=== PATIENT | female | born 1985 | race Caucasian/White ===

== ENCOUNTER 2019-05-20 00:18 | Emergency (ER) | payer SELFPAY ==
[2019-05-20] MEDS ORDERED: Sodium Chloride 0.9% 10 ML Syringe FLUSH PRN (00:56)
[2019-05-20] MEDS ORDERED: Aspirin 81 MG Tab.Chew PO ONE (00:56)
[2019-05-20] MEDS ORDERED: Sodium Chloride 0.9% 2.5 ML Syringe FLUSH PRN (00:56)
--- NOTE | 2019-05-20 01:13 | EDM.PDOC ---
ED HPI GENERAL MEDICAL PROBLEM - General Chief Complaint: Chest Pain Stated Complaint: CHEST PAIN Time Seen by Provider: 05/20/19 00:48 - History of Present Illness INITIAL COMMENTS - FREE TEXT/NARRATIVE: HISTORY AND PHYSICAL: History of present illness: The patient is a healthy 33-year-old female with a history of a bilateral tubal ligation but no cardiac or pulmonary disease who presents with onset of midsternal chest pain pressure that radiates to her back at 10 PM, approximately 3 hours ago. Earlier today she had a normal day without any upper respiratory symptoms such as cough runny nose congestion fevers or chills and she has no abdominal pain vomiting or diarrhea. She has no GI history of reflux or GERD and she took some Tylenol earlier for headache but nothing specifically for this chest discomfort. She describes it as a pressure and she feels it more in her back than in her chest. She has no significant social history she is not on any oral hormonal medication and she has no significant family history of cardiac problems. She says it is worse with certain positions and movements but is not is certainly worse with deep breaths. She does not feel short of breath and she has no leg pain or swelling. It as a 6 or 7/10. Aside from the radiation to the back and does not radiate right or left Review of systems: As per history of present illness and below otherwise all systems reviewed and negative. Past medical history: As per history of present illness and as reviewed below otherwise noncontributory. Surgical history: As per history of present illness and as reviewed below otherwise noncontributory. Social history: No reported history of drug or alcohol abuse. Family history: As per history of present illness and as reviewed below otherwise noncontributory. Physical exam: General: Well-developed well-nourished female who is nontoxic and vital signs are noted by me. She is not breathless on my evaluation HEENT: Atraumatic, normocephalic, pupils reactive, negative for conjunctival pallor or scleral icterus, mucous membranes moist, throat clear, neck supple, nontender, trachea midline. Lungs: Clear to auscultation, breath sounds equal bilaterally, chest nontender And with very deep palpation I can trigger some of the discomfort but is not completely reproducible and there is no defects deformities or crepitus of the chest wallHeart: S1S2, regular, negative for clicks, rubs, or JVD. Abdomen: Soft, nondistended, nontender. Negative for masses or hepatosplenomegaly. Negative for costovertebral tenderness. Pelvis: Stable nontender. Genitourinary: Deferred. Rectal: Deferred. Extremities: Atraumatic, negative for cords or calf pain. Neurovascular unremarkable. no pedal edema or leg asymmetry Neuro: Awake, alert, oriented. Cranial nerves II through XII unremarkable. Cerebellum unremarkable. Motor and sensory unremarkable throughout. Exam nonfocal. Diagnostics: EKG CBC CMP INR amylase lipase d-dimer troponin chest x-ray Due to elevated d-dimer CTA chest was ordered Therapeutics: IV O2 monitor aspirin sublingual nitroglycerin After 2 sublingual nitroglycerin the patient's chest pain is 1/10. We will continue to monitor this and disposition pending those results Patient is currently pain-free .Patient is aware of all testing results including the CT scan which does not reveal any pulmonary embolus but there is a nodule in the lingula that she is aware she needs follow-up as an outpatient in 3-6 months and she is also aware that she has distention of a gallbladder with stones. The patient tells me she did eat pizza tonight for dinner and her pain started several hours after that. I've advised her to eat a low-fat diet and to follow-up in neurosurgery clinic as this is the most likely cause of her chest pain/I will give her some tramadol for home Impression: Atypical chest/back pain, biliary colic and cholelithiasis Definitive disposition and diagnosis as appropriate pending reevaluation and review of above. chest Pain Score (Numeric/FACES): 8 - Related Data Allergies Allergy/AdvReac Type Severity Reaction Status Date / Time diphenhydramine Allergy Hives Verified 05/20/19 00:43 [From Benadryl] Home Meds: Home Meds Carbidopa/Levodopa [Carbidopa-Levo 25-100 MG ODT] 1 tab PO DAILY 05/20/19 [ History] ED ROS GENERAL - Review of Systems Review Of Systems: Comprehensive ROS is negative, except as noted in HPI. ED EXAM, GENERAL - Physical Exam Exam: See Below (see Dictation) Course - Vital Signs Last Recorded V/S: Last Vital Signs Temp 36.9 C 05/20/19 01:31 Pulse 76 05/20/19 01:35 Resp 18 05/20/19 01:35 BP 99/63 05/20/19 01:35 Pulse Ox 96 05/20/19 01:31 - Orders/Labs/Meds Orders: Active Orders 24 hr Category Date Time Status Cardiac Monitoring [RC] . DIRECTED Care 05/20/19 00:55 Active EKG Documentation Completion [RC] STAT Care 05/20/19 00:55 Active Oxygen Therapy, ED [RC] ASDIRECTED Care 05/20/19 00:55 Active Pulse Oximetry [RC] ASDIRECTED Care 05/20/19 00:55 Active Nitroglycerin [Nitrostat] Med 05/20/19 00:56 Active 0.4 mg SL Q5M PRN Sodium Chloride 0.9% [Saline Flush] Med 05/20/19 00:56 Active 10 ml FLUSH ASDIRECTED PRN Sodium Chloride 0.9% [Saline Flush] Med 05/20/19 00:56 Active 2.5 ml FLUSH ASDIRECTED PRN Saline Lock Insert [OM.PC] Stat Oth 05/20/19 00:55 Ordered Medication Orders Nitroglycerin (Nitrostat) 0.4 mg SL Q5M PRN PRN Reason: Chest Pain Last Admin: 05/20/19 01:23 Dose: 0.4 mg Admin: 05/20/19 01:18 Dose: 0.4 mg Sodium Chloride (Saline Flush) 10 ml FLUSH ASDIRECTED PRN PRN Reason: Keep Vein Open Sodium Chloride (Saline Flush) 2.5 ml FLUSH ASDIRECTED PRN PRN Reason: Keep Vein Open Labs: Laboratory Tests 05/20/19 05/20/19 05/20/19 Range/Units 01:15 01:15 01:15 WBC 9.63 (4.0-11.0) K/uL RBC 4.35 (4.30-5.90) M/uL Hgb 13.2 (12.0-16.0) g/dL Hct 39.3 (36.0-46.0) % MCV 90.3 (80.0-98.0) fL MCH 30.3 (27.0-32.0) pg MCHC 33.6 (31.0-37.0) g/dL RDW Std Deviation 43.0 (28.0-62.0) fl RDW Coeff of Yael 13 (11.0-15.0) % Plt Count 335 (150-400) K/uL MPV 9.40 (7.40-12.00) fL Neut % (Auto) 53.2 (48.0-80.0) % Lymph % (Auto) 27.8 (16.0-40.0) % Jessamine % (Auto) 13.9 (0.0-15.0) % Eos % (Auto) 4.5 (0.0-7.0) % Baso % (Auto) 0.6 (0.0-1.5) % Neut # (Auto) 5.1 (1.4-5.7) K/uL Lymph # (Auto) 2.7 H (0.6-2.4) K/uL Jessamine # (Auto) 1.3 H (0.0-0.8) K/uL Eos # (Auto) 0.4 (0.0-0.7) K/uL Baso # (Auto) 0.1 (0.0-0.1) K/uL Nucleated RBC % 0.0 /100WBC Nucleated RBCs # 0 K/uL INR D-Dimer, Quantitative 1.04 H (0.0-0.50) mg/L FEU Sodium 139 (136-145) mmol/L Potassium 4.0 (3.5-5.1) mmol/L Chloride 105 (98-107) mmol/L Carbon Dioxide 25.4 (21.0-32.0) mmol/L BUN 14 (7.0-18.0) mg/dL Creatinine 1.0 (0.6-1.0) mg/dL Est Cr Clr Drug Dosing 66.19 mL/min Estimated GFR (MDRD) > 60.0 ml/min Glucose 98 (74-106) mg/dL Calcium 8.7 (8.5-10.1) mg/dL Total Bilirubin 0.2 (0.2-1.0) mg/dL AST 18 (15-37) IU/L ALT 57 (14-63) IU/L Alkaline Phosphatase 102 (46-116) U/L Troponin I < 0.050 (0.000-0.056) ng/mL Total Protein 7.6 (6.4-8.2) g/dL Albumin 3.6 (3.4-5.0) g/dL Globulin 4.0 (2.6-4.0) g/dL Albumin/Globulin Ratio 0.9 (0.9-1.6) Amylase 55 (25-115) U/L Lipase 148 (73-393) U/L 05/20/19 Range/Units 01:15 WBC (4.0-11.0) K/uL RBC (4.30-5.90) M/uL Hgb (12.0-16.0) g/dL Hct (36.0-46.0) % MCV (80.0-98.0) fL MCH (27.0-32.0) pg MCHC (31.0-37.0) g/dL RDW Std Deviation (28.0-62.0) fl RDW Coeff of Yael (11.0-15.0) % Plt Count (150-400) K/uL MPV (7.40-12.00) fL Neut % (Auto) (48.0-80.0) % Lymph % (Auto) (16.0-40.0) % Jessamine % (Auto) (0.0-15.0) % Eos % (Auto) (0.0-7.0) % Baso % (Auto) (0.0-1.5) % Neut # (Auto) (1.4-5.7) K/uL Lymph # (Auto) (0.6-2.4) K/uL Jessamine # (Auto) (0.0-0.8) K/uL Eos # (Auto) (0.0-0.7) K/uL Baso # (Auto) (0.0-0.1) K/uL Nucleated RBC % /100WBC Nucleated RBCs # K/uL INR 0.96 D-Dimer, Quantitative (0.0-0.50) mg/L FEU Sodium (136-145) mmol/L Potassium (3.5-5.1) mmol/L Chloride (98-107) mmol/L Carbon Dioxide (21.0-32.0) mmol/L BUN (7.0-18.0) mg/dL Creatinine (0.6-1.0) mg/dL Est Cr Clr Drug Dosing mL/min Estimated GFR (MDRD) ml/min Glucose (74-106) mg/dL Calcium (8.5-10.1) mg/dL Total Bilirubin (0.2-1.0) mg/dL AST (15-37) IU/L ALT (14-63) IU/L Alkaline Phosphatase (46-116) U/L Troponin I (0.000-0.056) ng/mL Total Protein (6.4-8.2) g/dL Albumin (3.4-5.0) g/dL Globulin (2.6-4.0) g/dL Albumin/Globulin Ratio (0.9-1.6) Amylase (25-115) U/L Lipase (73-393) U/L Meds: Medications Generic Name Dose Route Start Last Admin Trade Name Freq PRN Reason Stop Dose Admin Nitroglycerin 0.4 mg 05/20/19 00:56 05/20/19 01:23 Nitrostat SL 0.4 mg Q5M PRN Administration Chest Pain Sodium Chloride 10 ml 05/20/19 00:56 Saline Flush FLUSH ASDIRECTED PRN Keep Vein Open Sodium Chloride 2.5 ml 05/20/19 00:56 Saline Flush FLUSH ASDIRECTED PRN Keep Vein Open Discontinued Medications Generic Name Dose Route Start Last Admin Trade Name Freq PRN Reason Stop Dose Admin Aspirin 324 mg 05/20/19 00:56 05/20/19 01:10 Aspirin PO 05/20/19 00:57 324 mg ONETIME ONE Administration Iopamidol 100 ml 05/20/19 02:14 05/20/19 02:26 Isovue-370 (76%) IVPUSH 05/20/19 02:15 100 ml ONETIME ONE Administration Departure - Departure Time of Disposition: 03:13 Disposition: Home, Self-Care 01 Condition: Good Clinical Impression: Atypical chest pain, Biliary colic Cholelithiasis Qualifiers: Cholelithiasis location: gallbladder Cholecystitis presence: without cholecystitis Biliary obstruction: without biliary obstruction Qualified Code(s) : K80.20 - Calculus of gallbladder without cholecystitis without obstruction - Discharge Information Referrals: PCP,None [Primary Care Provider] - Forms: ED Department Discharge Additional Instructions: The following information is given to patients seen in the emergency department who are being discharged to home. This information is to outline your options for follow-up care. We provide all patients seen in our emergency department with a follow-up referral. The need for follow-up, as well as the timing and circumstances, are variable depending upon the specifics of your emergency department visit. If you don't have a primary care physician on staff, we will provide you with a referral. We always advise you to contact your personal physician following an emergency department visit to inform them of the circumstance of the visit and for follow-up with them and/or the need for any referrals to a consulting specialist. The emergency department will also refer you to a specialist when appropriate. This referral assures that you have the opportunity for followup care with a specialist. All of these measure are taken in an effort to provide you with optimal care, which includes your followup. Under all circumstances we always encourage you to contact your private physician who remains a resource for coordinating your care. When calling for followup care, please make the office aware that this follow-up is from your recent emergency room visit. If for any reason you are refused follow-up, please contact the [facility] emergency department at and ask to speak to the emergency department charge nurse. [facility] [address] [place] [address] Please eat a low-fat diet and push hydration. Use [id number] medications for discomfort and pain and at the tramadol as you need but only take 1 at home. Please connect with our surgery clinic as he will need further care and evaluation of the gallbladder and the gallstones. Return to ER as needed and as discussed - My Orders Last 24 Hours: My Active Orders 05/20/19 00:55 Cardiac Monitoring [RC] . DIRECTED EKG Documentation Completion [RC] STAT Oxygen Therapy, ED [RC] ASDIRECTED Pulse Oximetry [RC] ASDIRECTED Saline Lock Insert [OM.PC] Stat 05/20/19 00:56 Nitroglycerin [Nitrostat] 0.4 mg SL Q5M PRN Sodium Chloride 0.9% [Saline Flush] 10 ml FLUSH ASDIRECTED PRN Sodium Chloride 0.9% [Saline Flush] 2.5 ml FLUSH ASDIRECTED PRN - Assessment/Plan Last 24 Hours: My Active Orders 05/20/19 00:55 Cardiac Monitoring [RC] . DIRECTED EKG Documentation Completion [RC] STAT Oxygen Therapy, ED [RC] ASDIRECTED Pulse Oximetry [RC] ASDIRECTED Saline Lock Insert [OM.PC] Stat 05/20/19 00:56 Nitroglycerin [Nitrostat] 0.4 mg SL Q5M PRN Sodium Chloride 0.9% [Saline Flush] 10 ml FLUSH ASDIRECTED PRN Sodium Chloride 0.9% [Saline Flush] 2.5 ml FLUSH ASDIRECTED PRN
[2019-05-20] MEDS: Nitroglycerin 0.4 MG Tab.SL SL PRN ×2 (01:18→01:23)
[2019-05-20 01:49] LABS: BLOOD UREA NITROGEN,BUN 14 mg/dL (7.0-18.0); CARBON DIOXIDE,CO2 25.4 mmol/L (21.0-32.0); CHLORIDE,CL 105 mmol/L (98-107); GLUCOSE RANDOM 98 mg/dL (74-106); LIPASE 148 U/L (73-393); SODIUM,NA 139 mmol/L (136-145)
--- NOTE | 2019-05-20 01:55 | CR ---
INDICATION: Chest pain TECHNIQUE: Chest radiograph 1 view COMPARISON: None FINDINGS: Moderate degradation of image quality noted due to body habitus. Mediastinum: The mediastinum is normal in appearance. The heart silhouette is normal in size and morphology. Lung: Both lungs are unremarkable in appearance with small lung volumes. No sign of pleural effusion seen. No pneumothorax is identified. Bone and Soft tissue: Unremarkable for age. IMPRESSION: 1. No acute cardiopulmonary disease is seen. Dictated by: Skyler Syed MD @ 05/20/2019 01:54:57 (Electronically Signed)
[2019-05-20] MEDS ORDERED: Iopamidol 755 Mg/ML 100 ML Bottle IVPUSH ONE (02:14)
--- NOTE | 2019-05-20 02:43 | CT ---
INDICATION: Chest pain with elevated d-dimer TECHNIQUE: CT chest with i.v. contrast using pulmonary angiographic technique. Coronal and sagittal reformats were obtained. CONTRAST: 100 mL Isovue 370 COMPARISON: None FINDINGS: Cardiovascular: The pulmonary arteries are unremarkable in enhancement with no evidence of acute pulmonary embolism. The heart has an unremarkable appearance and size. No sign of aneurysm in the thoracic aorta. Mediastinum: No mass or adenopathy seen. Lung: Eeky-vy-psxiurxg ground-glass opacities present in both lung bases with mosaic attenuation. There is a 6 mm nodular density in the lateral base of the lingula. Pleura and pericardium: No sign of pleural effusion seen. No significant pericardial effusion is present. Chest wall and axilla: No mass or adenopathy seen. Bone: Unremarkable for age. Upper abdomen: The gallbladder is distended measuring 5 cm with multiple faceted gallstones seen. IMPRESSIONS: 1. No CT evidence of acute pulmonary emboli seen. 2. The gallbladder is distended measuring 5 cm with multiple faceted gallstones seen. 3. Kucf-su-fxacttyc ground-glass opacities present in both lung bases with mosaic attenuation. Clinical correlation is recommended to exclude pneumonitis or viral pneumonia. 4. There is a 6 mm nodular density in the lateral base of the lingula. This may represent a focus of atelectasis. Follow-up chest CT in 3-6 months is recommended to document resolution. Dictated by Skyler Syed MD @ 05/20/2019 2:40:54 AM Please note that all CT scans at this facility use dose modulation, iterative reconstruction, and/or weight-based dosing when appropriate to reduce radiation dose to as low as reasonably achievable. Dictated by: Skyler Syed MD @ 05/20/2019 02:40:57 (Electronically Signed)
== END 2019-05-20 03:30 | disposition home or self-care (01) ==
LOC: MW.ED 00:18
DX: R07.89 Other chest pain (principal); K80.70 Calculus of gallbladder and bile duct without cholecystitis without obstruction; Z88.8 Allergy status to other drugs, medicaments and biological substances; Z79.899 Other long term (current) drug therapy
CPT/HCPCS: 36415; 71045; 71275; 80053; 82150; 83690; 84484; 85025; 85379; 85610; 93005; 99285; A9270; Q9967; 99284

== ENCOUNTER 2019-05-30 10:07 | Emergency (ER) | payer SELFPAY ==
--- NOTE | 2019-05-30 10:30 | EDM.PDOC ---
ED HPI GENERAL MEDICAL PROBLEM - General Chief Complaint: ENT Problem Stated Complaint: COUGH Time Seen by Provider: 05/30/19 10:13 Source of Information: Reports: Patient History Limitations: Reports: No Limitations - History of Present Illness INITIAL COMMENTS - FREE TEXT/NARRATIVE: HISTORY AND PHYSICAL: History of present illness: Patient is a 33-year-old female who presents to the ED today with concern of cough and sore throat 4 days. Patient states she has taken [id number] Mucinex and use cough drops and does have relief of symptoms with this. Patient denies any health history or any other symptoms or concerns. Patient denies fever, chills, chest pain, shortness of breath. Denies headache, neck stiff ness, change in vision, syncope, or near syncope. Denies nausea, vomiting, abdominal pain, diarrhea, constipation, or dysuria. Has not noted any blood in urine or stool. Patient has been eating and drinking appropriately. Review of systems: As per history of present illness and below otherwise all systems reviewed and negative. Past medical history: As per history of present illness and as reviewed below otherwise noncontributory. Surgical history: As per history of present illness and as reviewed below otherwise noncontributory. Social history: See social history for further information Family history: As per history of present illness and as reviewed below otherwise noncontributory. Physical exam: General: Patient is alert, oriented, and in no acute distress. Patient sitting comfortably on exam table. HEENT: Atraumatic, normocephalic, pupils equal and reactive bilaterally, negative for conjunctival pallor or scleral icterus, mucous membranes moist, TMs normal bilaterally, throat clear, neck supple, nontender, trachea midline. No drooling or trismus noted. No meningeal signs. No hot potato voice noted. Lungs: Clear to auscultation, breath sounds equal bilaterally, chest nontender. Dry cough on exam. Heart: S1S2, regular rate and rhythm without overt murmur Abdomen: Soft, nondistended, nontender. Negative for masses or hepatosplenomegaly. Negative for costovertebral tenderness. Pelvis: Stable nontender. Genitourinary: Deferred. Rectal: Deferred. Skin: Intact, warm, dry. No lesions or rashes noted. Extremities: Atraumatic, negative for cords or calf pain. Neurovascular unremarkable. Neuro: Awake, alert, oriented. Cranial nerves II through XII unremarkable. Cerebellum unremarkable. Motor and sensory unremarkable throughout. Exam nonfocal. Notes: Discussed the importance for follow-up with the primary care provider. Voices understanding and is agreeable to plan of care. Denies any further questions or concerns at this time. Diagnostics: Strep, Influenza, CBC, CMP, CXR Therapeutics: None Prescription: Proair, Augmentin Impression: Community Acquired Pneumonia Plan: 1. Take medication as prescribed. You can alternate ibuprofen and Tylenol as checked for pain and discomfort. 2. Follow-up with her primary care provider as discussed. Return to the ED as needed and as discussed. Definitive disposition and diagnosis as appropriate pending reevaluation and review of above. throat Pain Score (Numeric/FACES): 6 - Related Data Allergies Allergy/AdvReac Type Severity Reaction Status Date / Time diphenhydramine Allergy Hives Verified 05/30/19 10:14 [From Benadryl] Home Meds: Home Meds Carbidopa/Levodopa [Carbidopa-Levo 25-100 MG ODT] 1 tab PO DAILY 05/20/19 [ History] Albuterol Sulfate [Proair Hfa] 8.5 gm IH Q8HR PRN #1 hfa.aer.ad 05/30/19 [Rx] methylPREDNISolone [Medrol] 4 mg PO ASDIRECTED #1 dosepk 05/30/19 [Rx] Past Medical History - Past Health History Medical/Surgical History: Denies Medical/Surgical History Neurological History: Reports: Other (See Below) Other Neuro History: Dystonia - Past Surgical History Female Surgical History: Reports: Section, Tubal Ligation Social & Family History - Family History Family Medical History: Noncontributory - Tobacco Use Smoking Status *Q: Never Smoker - Recreational Drug Use Recreational Drug Use: No ED ROS GENERAL - Review of Systems Review Of Systems: Comprehensive ROS is negative, except as noted in HPI. ED EXAM, GENERAL - Physical Exam Exam: See Below (See dictation) Course - Vital Signs Last Recorded V/S: Last Vital Signs Temp 96.8 F 05/30/19 10:14 Pulse 99 05/30/19 10:14 Resp 18 05/30/19 10:14 BP 116/68 05/30/19 10:14 Pulse Ox 96 05/30/19 10:14 - Orders/Labs/Meds Orders: Active Orders 24 hr Category Date Time Status CULTURE STREP A CONFIRMATION [RM] Stat Lab 05/30/19 10:16 Results STREP SCRN A RAPID W CULT CONF [RM] Stat Lab 05/30/19 10:16 Results Labs: Laboratory Tests 05/30/19 05/30/19 Range/Units 10:39 10:39 WBC 6.12 (4.0-11.0) K/uL RBC 4.26 L (4.30-5.90) M/uL Hgb 12.4 (12.0-16.0) g/dL Hct 38.5 (36.0-46.0) % MCV 90.4 (80.0-98.0) fL MCH 29.1 (27.0-32.0) pg MCHC 32.2 (31.0-37.0) g/dL RDW Std Deviation 44.0 (28.0-62.0) fl RDW Coeff of Yael 13 (11.0-15.0) % Plt Count 283 (150-400) K/uL MPV 9.70 (7.40-12.00) fL Neut % (Auto) 57.9 (48.0-80.0) % Lymph % (Auto) 14.9 L (16.0-40.0) % Lawrence % (Auto) 19.0 H (0.0-15.0) % Eos % (Auto) 7.7 H (0.0-7.0) % Baso % (Auto) 0.5 (0.0-1.5) % Neut # (Auto) 3.6 (1.4-5.7) K/uL Lymph # (Auto) 0.9 (0.6-2.4) K/uL Lawrence # (Auto) 1.2 H (0.0-0.8) K/uL Eos # (Auto) 0.5 (0.0-0.7) K/uL Baso # (Auto) 0.0 (0.0-0.1) K/uL Nucleated RBC % 0.0 /100WBC Nucleated RBCs # 0 K/uL Sodium 139 (136-145) mmol/L Potassium 3.5 (3.5-5.1) mmol/L Chloride 105 (98-107) mmol/L Carbon Dioxide 26.1 (21.0-32.0) mmol/L BUN 7 (7.0-18.0) mg/dL Creatinine 0.9 (0.6-1.0) mg/dL Est Cr Clr Drug Dosing 73.55 mL/min Estimated GFR (MDRD) > 60.0 ml/min Glucose 97 (74-106) mg/dL Calcium 8.5 (8.5-10.1) mg/dL Total Bilirubin 0.5 (0.2-1.0) mg/dL AST 53 H (15-37) IU/L ALT 36 (14-63) IU/L Alkaline Phosphatase 125 H (46-116) U/L Total Protein 7.9 (6.4-8.2) g/dL Albumin 3.4 (3.4-5.0) g/dL Globulin 4.5 H (2.6-4.0) g/dL Albumin/Globulin Ratio 0.8 L (0.9-1.6) Departure - Departure Time of Disposition: 12:08 Disposition: Home, Self-Care 01 Clinical Impression: Community acquired pneumonia Qualifiers: Laterality: right Lung location: middle lobe of lung Qualified Code(s): J18.9 - Pneumonia, unspecified organism - Discharge Information Prescriptions: Albuterol Sulfate [Proair Hfa] 8.5 gm IH Q8HR PRN #1 hfa.aer.ad PRN Reason: Cough methylPREDNISolone [Medrol] 4 mg PO ASDIRECTED #1 dosepk Referrals: Lindsay Diop MD [Primary Care Provider] - Forms: ED Department Discharge Additional Instructions: The following information is given to patients seen in the emergency department who are being discharged to home. This information is to outline your options for follow-up care. We provide all patients seen in our emergency department with a follow-up referral. The need for follow-up, as well as the timing and circumstances, are variable depending upon the specifics of your emergency department visit. If you don't have a primary care physician on staff, we will provide you with a referral. We always advise you to contact your personal physician following an emergency department visit to inform them of the circumstance of the visit and for follow-up with them and/or the need for any referrals to a consulting specialist. The emergency department will also refer you to a specialist when appropriate. This referral assures that you have the opportunity for follow-up care with a specialist. All of these measure are taken in an effort to provide you with optimal care, which includes your follow-up. Under all circumstances we always encourage you to contact your private physician who remains a resource for coordinating your care. When calling for follow-up care, please make the office aware that this follow-up is from your recent emergency room visit. If for any reason you are refused follow-up, please contact the [facility] Emergency Department at and asked to speak to the emergency department charge nurse. [facility] [address] [place] [address] [address] 1. Take medication as prescribed. You can alternate ibuprofen and Tylenol as checked for pain and discomfort. 2. Follow-up with her primary care provider as discussed. Return to the ED as needed and as discussed. - My Orders Last 24 Hours: My Active Orders 05/30/19 10:16 CULTURE STREP A CONFIRMATION [RM] Stat STREP SCRN A RAPID W CULT CONF [RM] Stat - Assessment/Plan Last 24 Hours: My Active Orders 05/30/19 10:16 CULTURE STREP A CONFIRMATION [RM] Stat STREP SCRN A RAPID W CULT CONF [RM] Stat
[2019-05-30 11:10] LABS: BLOOD UREA NITROGEN,BUN 7 mg/dL (7.0-18.0); CARBON DIOXIDE,CO2 26.1 mmol/L (21.0-32.0); CHLORIDE,CL 105 mmol/L (98-107); GLUCOSE RANDOM 97 mg/dL (74-106); POTASSIUM,K 3.5 mmol/L (3.5-5.1); SODIUM,NA 139 mmol/L (136-145)
--- NOTE | 2019-05-30 11:56 | CR ---
EXAM DATE: 05/30/19 PATIENT'S AGE: 33 Chest: Two views of the chest were obtained. Comparison: Prior chest x-ray of 05/20/19. Consolidating density is noted within the right middle lobe. This is an interval change from prior chest x-ray. Lungs otherwise are clear. Heart size and mediastinum are normal. Bony structures are unremarkable. Impression: 1. Consolidation within the right middle lobe most likely representing pneumonia. 2. Right middle lobe finding is an interval change from prior chest x-ray. Diagnostic code #3 This report was dictated in [place] Standard Time Report Signed by Proxy. [facility]
== END 2019-05-30 12:25 | disposition home or self-care (01) ==
LOC: MW.ED 10:07
DX: J18.9 Pneumonia, unspecified organism (principal); Z88.8 Allergy status to other drugs, medicaments and biological substances
CPT/HCPCS: 36415; 71046; 71046-26; 80053; 85025; 87081; 87804; 87880-QW; 99283-25

== ENCOUNTER 2019-08-14 02:35 | Emergency (ER) | payer SELFPAY ==
[2019-08-14] MEDS ORDERED: Dexamethasone 4 MG Tab PO ONE (02:54)
[2019-08-14] MEDS ORDERED: Ibuprofen 800 MG Tab PO ONE (02:55)
--- NOTE | 2019-08-14 03:14 | EDM.PDOC ---
ED HPI GENERAL MEDICAL PROBLEM - General Chief Complaint: ENT Problem Stated Complaint: SORE THROAT Time Seen by Provider: 08/14/19 03:14 - History of Present Illness INITIAL COMMENTS - FREE TEXT/NARRATIVE: HPI 33-year-old female presents for evaluation of ~3/4 day of sore throat for which she is taking cough drops. Patient is concerned she has strep throat. No headache, fevers, chills, neck stiffness, or further symptoms. No new sexual contacts. M/S/F/SocHx notable for: please see HPI; remainder reviewed with patient and in chart. ROS: Negative constitutional, eye, cardiovascular, pulmonary, GI, , MSK, skin , neurologic, psychiatric, endocrine unless noted in the HPI. Exam HR 90, RR 18, BP 136/77, T 35.9C, SaO2 9 & room air. Gen: Pleasant, non-toxic appearing, resting comfortably. HEENT: Normocephalic, atraumatic. * Ears - TMs clear bilaterally, bilateral external auditory canals without erythema, inflammation, or swelling, bilateral mastoids nontender without overlying erythema, swelling, or warmth. * Eyes - Bilateral eyes without injection, swelling, or discharge, no proptosis or periorbital erythema, swelling, warmth, or tenderness. * Mouth - Anterior oropharynx with MMM, no lesions appreciated, floor of the mouth is soft and without swelling. Posterior oropharynx without swelling, exudate, erythema, lesions, or post-nasal drip, uvula midline. * Nose - Nares without crusting or discharge. * Neck - Neck supple without posterior or anterior cervical chain lymphadenopathy bilaterally. Resp: Clear to auscultation bilaterally, normal work of breathing without accessory muscle usage. Card: Regular rate and rhythm with no murmurs, rubs or gallops. Extremities warm and well perfused. GI: Non-tender to palpation throughout all quadrants, no masses or organomegaly appreciated. : Deferred MSK: No visible deformities, strength and tone without visually appreciable deficit. Neuro: alert and oriented 3, no facial asymmetry, vision and hearing WNL. Heme/Lymph: Deferred Skin: Normal color with no visible lesions (other than noted above). Psych: Mood and affect appropriate. Labs / Imaging (pertinent): Group A strep negative. MDM Previous chart, nursing note, labs, imaging, and vitals reviewed. A: 33-year-old female presents for evaluation of ~3/4 day of sore throat for which she is taking cough drops. DDx: ]pharyngitis (HSV vs viral NOS vs GAS vs gonoccocal vs bacterial NOS)], EBV , HIV, candidiasis, sinusitis (bacterial, viral), peritonsillar cellulitis, STREET VENDOR , RPA, Pablo's angina, epiglottitis. Evaluation: patient well compensated appearing with clinically apparent pharyngitis, rapid strep negative, no identifiable risk features for gonococcal pharyngitis, oral mucosa without lesions consistent with HSV or candidiasis, doubt bacterial sinusitis given duration of symptoms, low suspicion for peritonsillar cellulitis or abscess given the absence of asymmetric swelling or uvular deviation, RPA is unlikely as the patient can comfortably flex and extend their neck and swallow without difficulty. As phonation is intact and breathing is unlabored doubt epiglottitis. The floor of the mouth is without evidence of Pablo's angina. Lemierre's disease was considered but as the patient does not have signs of STREET VENDOR or sepsis, further evaluation was not indicated. ED Course: No clinically significant changes. Patient given 10 mg dexamethasone PO and ibuprofen 800 mg. Disposition: Discharge with return to care as needed. Return to care indications provided. Impression: Pharyngitis throat Pain Score (Numeric/FACES): 10 - Related Data Allergies Allergy/AdvReac Type Severity Reaction Status Date / Time diphenhydramine Allergy Hives Verified 08/14/19 02:46 [From Benadryl] Home Meds: Home Meds Carbidopa/Levodopa [Carbidopa-Levo 25-100 MG ODT] 1 tab PO DAILY 05/20/19 [ History] Past Medical History - Past Health History Medical/Surgical History: Denies Medical/Surgical History HEENT History: Reports: None Cardiovascular History: Reports: None Respiratory History: Reports: None Gastrointestinal History: Reports: None Neurological History: Reports: Other (See Below) Other Neuro History: Dystonia Endocrine/Metabolic History: Reports: None Hematologic History: Reports: None Dermatologic History: Reports: None - Infectious Disease History Infectious Disease History: Reports: Chicken Pox - Past Surgical History Female Surgical History: Reports: Section, Tubal Ligation Social & Family History - Family History Family Medical History: Noncontributory - Tobacco Use Smoking Status *Q: Never Smoker - Recreational Drug Use Recreational Drug Use: No ED ROS GENERAL - Review of Systems Review Of Systems: See Below ED EXAM, GENERAL - Physical Exam Exam: See Below Course - Vital Signs Last Recorded V/S: Last Vital Signs Temp 35.9 C 08/14/19 02:47 Pulse 90 08/14/19 02:47 Resp 18 08/14/19 02:47 BP 136/77 08/14/19 02:47 Pulse Ox 99 08/14/19 02:47 - Orders/Labs/Meds Orders: Active Orders 24 hr Category Date Time Status CULTURE STREP A CONFIRMATION [] Stat Lab 08/14/19 02:43 Results STREP SCRN A RAPID W CULT CONF [] Stat Lab 08/14/19 02:43 Results Meds: Medications Discontinued Medications Generic Name Dose Route Start Last Admin Trade Name Phi PRN Reason Stop Dose Admin Dexamethasone 10 mg 08/14/19 02:54 08/14/19 03:08 Dexamethasone PO 08/14/19 02:55 10 mg ONETIME ONE Administration Ibuprofen 800 mg 08/14/19 02:55 08/14/19 03:08 Motrin PO 08/14/19 02:56 800 mg ONETIME ONE Administration Departure - Departure Time of Disposition: 03:13 Disposition: Home, Self-Care 01 Clinical Impression: Pharyngitis - Discharge Information Referrals: Lindsay Diop MD [Primary Care Provider] - Additional Instructions: You were in seen in the [facility] Emergency Department for evaluation of a sore throat, you are tentatively believed to have a viral infection causing pharyngitis. This is best treated with ibuprofen and acetaminophen as directed below. Please read and follow all of the instructions below. Please follow up with your primary care physician as needed. When calling for follow-up care, please make the office aware that this follow-up is from your recent emergency room visit. If for any reason you are refused follow-up, please contact the [facility] Emergency Department at and asked to speak to the emergency department charge nurse. Your care today was limited to identifying and treating emergent medical problems only. Many people have subtle differences in their test results that require follow up with their outpatient physician(s) to correctly determine if this represents a normal variation or concerning abnormality with respect to your specific health. The care given to you today was limited to identifying and treating emergent medical problems - you need to request a copy of all of your medical records from today's visit and follow up with your outpatient physician(s) to review both today's visit and your overall health. If you have any new symptoms or if you are at all concerned about your health please return immediately to the emergency department. Prescriptions: If you are uninsured or have financial difficulties with filling your prescription(s), you may consider using a free pharmacy discount service such as [employer] (K[employer]) or [employer] (Plasti[employer]ure). These services allow you to search for a medication on your phone (or computer) and obtain a coupon that usually has a significant discount from the list carmen at a pharmacy. Your physician as well as [facility] does not have a financial relationship with either of these services. You may also wish to speak with your physician to determine if lower cost prescriptions are possible. Obtaining primary care: 1. [facility] provides pediatrics (children), family medicine (children, adults, and some obstetrical care), and internal medicine (adults). Further specialty care is also available. Same day appointments are available. They may be contacted at [phone] and are open Tuesday through Tuesday 8 AM to 5 PM. The [facility] are located at [facility], [address] [place] [address]. 2. [facility] offers family medicine, internal medicine, [facility], and further specialty care. [facility] may be contacted at [phone]. [facility] is located at [address] [place] [address], [phone]. 3. If you have health insurance, please also contact your insurer for a list of accepting providers under your policy, you may contact these providers for further health care. Occupational health: Work related injuries may consider following up with [facility], . Occupational health services are located at [address] [place] [address] and are open Tuesday through Tuesday from 7: 30 am to 5:00 pm. Obstetrical and Gynecological Care: [facility], , Tuesday through Tuesday 8 AM to 5 PM. [address] [place] [address]. Eyecare: If you have an eye injury you should follow up with your city controller or with [facility], at [phone] or [phone] , they are located at [address] [place] [address]. Dental Care Amado Guajardo DDS. [address] [place], [place]. Ph. [phone] Chuck Guajardo DDS MS. [address] [facility] 104, [place], [place]. Ph. Charly Martínez DDS. 10 07/[address] [place] [address]. Ph. [phone] Bobby Johnston DDS. [address] [facility] 4 [place], [place]. Ph. [phone] Evangel[facility] Guerrero [facility] PC. [address] [facility] 101 [place], [place]. Ph. Yolande Esquivel DDS. [address] [facility]. Ph. [phone] [facility]. [address] [place], [place]. Ph. [phone] [facility]. [address] [place] [address], [place], [place]. Ph. [phone] [facility] [address] [place] [phone]. Ph. [facility]. [address] [place] [address] [address] [place], [place]. Ph. [facility]. [address] [place], [place]. Ph. [phone] Pharyngitis You have a severe sore throat caused by a viral or bacterial infection. These infections usually get better in 4-7 days with supportive care. You may use the following to reduce your pain: Ibuprofen 600 mg every 6-8 hours. Acetaminophen 1,000 mg every 6 hours. Over the counter throat lozenges. Warm liquids with honey may help. Please return to the emergency department if you develop any of the following: Difficulty swallowing One tonsil that is much larger than the other. Pain on flexing your neck or difficulty bending your neck Swelling below your tongue Rash Red or brown urine High fevers or chills If you are otherwise concerned about your health Please call your primary care physician if you are not feeling much better in 4 days. You make take over the counter Acetaminophen (Tylenol) and Ibuprofen (Motrin or Aleve) as directed below for relief of pain. Take 600 mg of ibuprofen (three 200 mg tablets) with a glass of water every 6-8 hours as needed for pain or fever. Do not take if you have ulcers, GI bleeding, are , or are allergic to ibuprofen. Take 1,000 mg of acetaminophen (two 500 mg tablets) with a glass of water every 6-8 hours as needed for pain. Do not take if you are allergic to acetaminophen. If you have liver disease, please reduce your dose to a maximum of 2,000 mg per day. You can take these medications at the same time or on separate schedules. Do not take for more than 10 days. Do not take with alcohol or other acetaminophen containing medications. This medication may cause a mildly upset stomach, if so take it with a small snack. Stop taking it if you have persistent abdominal pain, heartburn, or any stomach pain. Do not take this medication if you have known ulcers. Please read the warnings at the end of this document regarding these medications. IBUPROFEN WARNING: This drug may infrequently cause serious (rarely fatal) bleeding from the stomach or intestines. Also, related drugs rarely have caused blood clots to form, resulting in heart attacks and strokes. This medication might also rarely cause similar problems. Talk to your doctor or pharmacist about the benefits and risks of treatment, as well as other possible medication choices. If you notice any of the following rare but very serious side effects, stop taking ibuprofen and seek immediate medical attention: black stools, persistent stomach/abdominal pain, vomit that looks like coffee grounds, chest pain, weakness on one side of the body, sudden vision changes, slurred speech. IBUPROFEN SIDE EFFECTS: Upset stomach, nausea, vomiting, heartburn, headache, diarrhea, constipation, drowsiness, and dizziness may occur. If any of these effects persist or worsen, notify your doctor or pharmacist promptly. If your doctor has directed you to use this medication, remember that he or she has judged that the benefit to you is greater than the risk of side effects. Many people using this medication do not have serious side effects. Tell your doctor immediately if any of these serious side effects occur: stomach pain, swelling of the hands or feet, sudden or unexplained weight gain, ringing in the ears ( tinnitus). Tell your doctor immediately if any of these unlikely but serious side effects occur: vision changes, rapid or pounding heartbeat, easy bruising or bleeding, difficult/painful swallowing. Tell your doctor immediately if any of these highly unlikely but very serious side effects occur: change in amount of urine, severe headache, very stiff neck, mental/mood changes, persistent sore throat or fever. This drug may rarely cause serious (possibly fatal) liver disease. If you notice any of the following highly unlikely but very serious side effects, stop taking ibuprofen and consult your doctor or pharmacist immediately: yellowing eyes and skin, dark urine, unusual/extreme tiredness. An allergic reaction to this drug is unlikely, but seek immediate medical attention if it occurs. Symptoms of an allergic reaction include: rash, itching/ swelling (especially of the face/tongue/throat), severe dizziness, trouble breathing. This is not a complete list of possible side effects. ACETAMINOPHEN SIDE EFFECTS: This drug usually has no side effects. If you do not have liver problems, the maximum dose of acetaminophen for adults is 4 grams per day (4000 milligrams). Taking more than the maximum daily amount may cause serious (possibly fatal) liver damage. Get medical help right away if you have any of the following symptoms of liver damage: persistent nausea/vomiting, extreme tiredness, stomach/abdominal pain, yellowing eyes/skin, dark urine. If you have liver problems, consult your doctor or pharmacist for a safe dosage of this medication. A very serious allergic reaction to this drug is rare. However , get medical help right away if you notice any symptoms of a serious allergic reaction, including: rash, itching/swelling (especially of the face/tongue/ throat), severe dizziness, trouble breathing. This is not a complete list of possible side effects. If you notice other effects not listed above, contact your doctor or pharmacist. DRUG INTERACTIONS: Your healthcare professionals (e.g., doctor or pharmacist) may already be aware of any possible drug interactions and may be monitoring you for it. Do not start, stop or change the dosage of any medicine before checking with them first. This drug should not be used with the following medications because very serious interactions may occur: cidofovir, ketorolac. If you are currently using any of these medications listed above, tell your doctor or pharmacist before starting ibuprofen. Before using this medication, tell your doctor or pharmacist of all prescription and nonprescription/herbal products you may use, especially of: anti-platelet drugs (e.g., cilostazol, clopidogrel), oral bisphosphonates (e.g., alendronate), other medications for arthritis (e.g., aspirin, methotrexate), "blood thinners" (e.g., enoxaparin, heparin, warfarin), corticosteroids (e.g., prednisone), cyclosporine, desmopressin, high blood pressure drugs (including RAJI inhibitors such as captopril, angiotensin II receptor antagonists such as losartan, and beta- blockers such as metoprolol), lithium, pemetrexed, "water pills" (diuretics such as furosemide, hydrochlorothiazide, triamterene). Check all prescription and nonprescription medicine labels carefully for other pain/fever drugs ( NSAIDs such as aspirin, celecoxib, naproxen). These drugs are similar to ibuprofen, so taking one of these drugs while also taking ibuprofen may increase your risk of side effects. Consult your doctor or pharmacist for more details. However, if your doctor has prescribed low doses of aspirin to prevent heart attack or stroke (usually at dosages of 81-325 milligrams a day), you should continue to take the aspirin. Daily use of ibuprofen may decrease aspirin 's ability to prevent heart attack/stroke. Talk to your doctor about using a different medication (e.g., acetaminophen) to treat pain/fever. If you must take ibuprofen, talk to your doctor about possibly taking immediate-release aspirin (not enteric-coated) while also taking the ibuprofen dose apart from your aspirin dose. Do not increase your daily dose of aspirin or change the way you take aspirin/other medications without your doctor's approval. This document does not contain all possible interactions. Therefore, before using this product, tell your doctor or pharmacist of all the products you use. Keep a list of all your medications with you, and share the list with your doctor and pharmacist. Sepsis Event Note - Evaluation Sepsis Screening Result: No Definite Risk - Focused Exam Vital Signs: Vital Signs Temp Pulse Resp BP Pulse Ox 08/14/19 02:47 35.9 C 90 18 136/77 99 Date Exam was Performed: 08/14/19 Time Exam was Performed: 03:12 - My Orders Last 24 Hours: My Active Orders 08/14/19 02:43 CULTURE STREP A CONFIRMATION [RM] Stat STREP SCRN A RAPID W CULT CONF [] Stat - Assessment/Plan Last 24 Hours: My Active Orders 08/14/19 02:43 CULTURE STREP A CONFIRMATION [RM] Stat STREP SCRN A RAPID W CULT CONF [] Stat
== END 2019-08-14 03:20 | disposition home or self-care (01) ==
LOC: MW.ED 02:35
DX: J02.9 Acute pharyngitis, unspecified (principal); Z79.899 Other long term (current) drug therapy
CPT/HCPCS: 87081; 87880; 99283; A9270; J8540

== ENCOUNTER 2020-02-07 10:41 | Emergency (ER) | payer MEDICAID ==
[2020-02-07] MEDS ORDERED: Sodium Chloride 0.9% 10 ML Syringe FLUSH PRN (11:15)
[2020-02-07] MEDS ORDERED: Sodium Chloride 0.9% 2.5 ML Syringe FLUSH PRN (11:15)
[2020-02-07] MEDS ORDERED: Ibuprofen 400 MG Tab PO ONE (11:16)
--- NOTE | 2020-02-07 11:19 | EDM.PDOC ---
ED [facility] GENERAL MEDICAL PROBLEM - General Chief Complaint: Abdominal Pain Stated Complaint: LOWER ABDOMINAL PAIN Time Seen by Provider: 02/07/20 10:44 Source of Information: Reports: Patient History Limitations: Reports: No Limitations - History of Present Illness INITIAL COMMENTS - FREE TEXT/NARRATIVE: 34-year-old female with past medical history of 2 C-sections, status post ellis ateral tubal ligation presenting with low back pain. 4-day history of left- sided low back pain radiating to the left groin. Onset gradual, pain is constant, described as "cramping", rated as 8 out of 10. Intermittently taking Tylenol without relief. No history of prior pain like this. Denies trauma, fever, chills, dysuria, hematuria, urinary frequency, vaginal bleeding or discharge, genital lesions, chest pain, shortness of breath, or rash. ROS: A 10-point review of systems was negative, except as noted in the HPI (or in the ROS section of this note). Past medical history: Reviewed, no additional pertinent history. Surgical history: Reviewed in system, no additional pertinent history. Social history: Reviewed in system, no additional pertinent history. Family history: Reviewed in system, no additional pertinent history. PHYSICAL EXAM Vital signs reviewed. Nursing notes reviewed. Constitutional: Awake, alert, non-distressed. Head: Normocephalic, atraumatic. Eyes: EOMI, conjunctiva normal, no discharge, no scleral icterus. Ears, Nose, Throat: External ears and nose normal, moist oral mucosa. Cardiovascular: 2+ radial pulse, capillary refill less than 2 seconds. Pulmonary: normal work of breathing, no accessory muscle use. Abdomen/GI: Soft, mild tenderness to left lower quadrant, nondistended, no guarding or rigidity, no masses. No CVA tenderness. Musculoskeletal: No deformities. Integumentary: Appropriate color for ethnicity, warm, dry, no pallor or jaundice, no rash. Neurologic: Alert, answering questions appropriately, normal speech, no facial droop, moving all extremities well. Psychiatric: Appropriate mood and affect, normal thought process. Abdominal Pain Pain Score (Numeric/FACES): 6 - Related Data Allergies Allergy/AdvReac Type Severity Reaction Status Date / Time diphenhydramine Allergy Hives Verified 02/07/20 10:58 [From Benadryl] Home Meds: Home Meds Carbidopa/Levodopa [Carbidopa-Levo 25-100 MG ODT] 1 tab PO DAILY 05/20/19 [History] Tamsulosin [Flomax] 0.4 mg PO BEDTIME 14 Days #14 cap.er 02/07/20 [Rx] oxyCODONE 5 - 10 mg PO Q6H PRN #20 tab 02/07/20 [Rx] Past Medical History - Past Health History Medical/Surgical History: Denies Medical/Surgical History HEENT History: Reports: None Cardiovascular History: Reports: None Respiratory History: Reports: None Gastrointestinal History: Reports: None Neurological History: Reports: Other (See Below) Other Neuro History: Dystonia Endocrine/Metabolic History: Reports: None Hematologic History: Reports: None Dermatologic History: Reports: None - Infectious Disease History Infectious Disease History: Reports: None - Past Surgical History Female Surgical History: Reports: Section, Tubal Ligation Social & Family History - Family History Family Medical History: Noncontributory - Tobacco Use Smoking Status *Q: Never Smoker - Caffeine Use Caffeine Use: Reports: Energy Drinks, Soda - Alcohol Use Alcohol Use History: No - Recreational Drug Use Recreational Drug Use: No ED ROS GENERAL - Review of Systems Review Of Systems: See Below ED EXAM, GI/ABD - Physical Exam Exam: See Below Course - Vital Signs Text/Narrative:: Patient hemodynamically stable, afebrile, well-appearing, looks nontoxic. Differential diagnosis includes but is not limited to: UTI, pyelonephritis, kidney stone, AAA, diverticulitis, mesenteric ischemia, epiploic appendagitis, muscle strain/sprain, early zoster/shingles, colitis, bowel obstruction, intussusception, , ectopic , etc. Afebrile, hemodynamically stable, well-appearing. Low suspicion for infectious process. Urinalysis shows large blood but no evidence of infection. Urine test is negative. CBC shows normal cell lines. Metabolic panel is reassuring. Patient was given ibuprofen for pain with good relief. Obtained a CT scan of the abdomen/pelvis with contrast, which demonstrated a 5 mm obstructing stone within the proximal left ureter causing proximal hydronephrosis, but no evidence of any other acute process such as pyelo nephritis or associated ureteral fat stranding. No other acute abnormalities noted on this imaging study. Pain is well controlled and the patient is stable to discharge home. There is no evidence of infection at this point. She will be given a urine strainer and was also given a prescription for tamsulosin. 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 I will prescribe a course of oxycodone for severe breakthrough pain. She will be referred to the urology clinic for follow-up in 1 to 2 weeks. Plan: Patient is stable to discharge home with outpatient urology clinic follow- up. Strict emergency department return precautions were provided, patient indicated understanding. All questions were answered prior to departure. Discharged in good condition. Last Recorded V/S: Last Vital Signs Temp 37.1 C 02/07/20 10:59 Pulse 82 02/07/20 13:46 Resp 18 02/07/20 10:59 BP 126/71 02/07/20 13:46 Pulse Ox 99 02/07/20 13:46 - Orders/Labs/Meds Orders: Active Orders 24 hr Category Date Time Status Saline Lock Insert [OM.PC] Stat Oth 02/07/20 11:16 Ordered Labs: Laboratory Tests 02/07/20 02/07/20 02/07/20 Range/Units 10:59 10:59 11:25 WBC (4.0-11.0) K/uL RBC (4.30-5.90) M/uL Hgb (12.0-16.0) g/dL Hct (36.0-46.0) % MCV (80.0-98.0) fL MCH (27.0-32.0) pg MCHC (31.0-37.0) g/dL RDW Std Deviation (28.0-62.0) fl RDW Coeff of Yael (11.0-15.0) % Plt Count (150-400) K/uL MPV (7.40-12.00) fL Neut % (Auto) (48.0-80.0) % Lymph % (Auto) (16.0-40.0) % Leake % (Auto) (0.0-15.0) % Eos % (Auto) (0.0-7.0) % Baso % (Auto) (0.0-1.5) % Neut # (Auto) (1.4-5.7) K/uL Lymph # (Auto) (0.6-2.4) K/uL Leake # (Auto) (0.0-0.8) K/uL Eos # (Auto) (0.0-0.7) K/uL Baso # (Auto) (0.0-0.1) K/uL Nucleated RBC % /100WBC Nucleated RBCs # K/uL Sodium 135 L (136-145) mmol/L Potassium 4.1 (3.5-5.1) mmol/L Chloride 103 (98-107) mmol/L Carbon Dioxide 24.7 (21.0-32.0) mmol/L BUN 10 (7.0-18.0) mg/dL Creatinine 1.0 (0.6-1.0) mg/dL Est Cr Clr Drug Dosing 65.57 mL/min Estimated GFR (MDRD) > 60.0 ml/min Glucose 105 (74-106) mg/dL Calcium 8.3 L (8.5-10.1) mg/dL Urine Color YELLOW Urine Appearance SLT CLOUDY Urine pH 6.0 (5.0-8.0) Ur Specific [place] 1.025 (1.001-1.035) Urine Protein NEGATIVE (NEGATIVE) mg/dL Urine Glucose (UA) NEGATIVE (NEGATIVE) mg/dL Urine Ketones NEGATIVE (NEGATIVE) mg/dL Urine Occult Blood LARGE H (NEGATIVE) Urine Nitrite NEGATIVE (NEGATIVE) Urine Bilirubin NEGATIVE (NEGATIVE) Urine Urobilinogen 0.2 (<2.0) EU/dL Ur Leukocyte Esterase NEGATIVE (NEGATIVE) Urine RBC 15-20 (0-2/HPF) Urine WBC 0-2 (0-5/HPF) Ur Epithelial Cells FEW (NONE-FEW) Urine Bacteria FEW (NEGATIVE) Urine Mucus LIGHT (NONE-MOD) Urine Yeast FEW Urine HCG, Qual NEGATIVE (NEGATIVE) 02/07/20 Range/Units 11:25 WBC 10.90 (4.0-11.0) K/uL RBC 4.77 (4.30-5.90) M/uL Hgb 13.7 (12.0-16.0) g/dL Hct 41.7 (36.0-46.0) % MCV 87.4 (80.0-98.0) fL MCH 28.7 (27.0-32.0) pg MCHC 32.9 (31.0-37.0) g/dL RDW Std Deviation 41.3 (28.0-62.0) fl RDW Coeff of Yael 13 (11.0-15.0) % Plt Count 352 (150-400) K/uL MPV 9.90 (7.40-12.00) fL Neut % (Auto) 74.4 (48.0-80.0) % Lymph % (Auto) 12.0 L (16.0-40.0) % Leake % (Auto) 11.4 (0.0-15.0) % Eos % (Auto) 1.8 (0.0-7.0) % Baso % (Auto) 0.4 (0.0-1.5) % Neut # (Auto) 8.1 H (1.4-5.7) K/uL Lymph # (Auto) 1.3 (0.6-2.4) K/uL Leake # (Auto) 1.2 H (0.0-0.8) K/uL Eos # (Auto) 0.2 (0.0-0.7) K/uL Baso # (Auto) 0.0 (0.0-0.1) K/uL Nucleated RBC % 0.0 /100WBC Nucleated RBCs # 0 K/uL Sodium (136-145) mmol/L Potassium (3.5-5.1) mmol/L Chloride (98-107) mmol/L Carbon Dioxide (21.0-32.0) mmol/L BUN (7.0-18.0) mg/dL Creatinine (0.6-1.0) mg/dL Est Cr Clr Drug Dosing mL/min Estimated GFR (MDRD) ml/min Glucose (74-106) mg/dL Calcium (8.5-10.1) mg/dL Urine Color Urine Appearance Urine pH (5.0-8.0) Ur Specific [place] (1.001-1.035) Urine Protein (NEGATIVE) mg/dL Urine Glucose (UA) (NEGATIVE) mg/dL Urine Ketones (NEGATIVE) mg/dL Urine Occult Blood (NEGATIVE) Urine Nitrite (NEGATIVE) Urine Bilirubin (NEGATIVE) Urine Urobilinogen (<2.0) EU/dL Ur Leukocyte Esterase (NEGATIVE) Urine RBC (0-2/HPF) Urine WBC (0-5/HPF) Ur Epithelial Cells (NONE-FEW) Urine Bacteria (NEGATIVE) Urine Mucus (NONE-MOD) Urine Yeast Urine HCG, Qual (NEGATIVE) Meds: Medications Discontinued Medications Generic Name Dose Route Start Last Admin Trade Name Freq PRN Reason Stop Dose Admin Ibuprofen 400 mg 02/07/20 11:16 02/07/20 11:23 Motrin PO 02/07/20 11:17 400 mg ONETIME ONE Administration Iopamidol 100 ml 02/07/20 13:12 02/07/20 13:12 Isovue Multipack-370 (76%) IVPUSH 02/07/20 13:13 100 ml ONETIME STA Administration Sodium Chloride 10 ml 02/07/20 11:15 02/07/20 11:23 Saline Flush FLUSH 10 ml ASDIRECTED PRN Administration Keep Vein Open Sodium Chloride 2.5 ml 02/07/20 11:15 02/07/20 11:23 Saline Flush FLUSH 2.5 ml ASDIRECTED PRN Administration Keep Vein Open Departure - Departure Time of Disposition: 13:33 Disposition: Home, Self-Care 01 Condition: Good Clinical Impression: Ureterolithiasis - Discharge Information *PRESCRIPTION DRUG MONITORING PROGRAM REVIEWED*: Yes *COPY OF PRESCRIPTION DRUG MONITORING REPORT IN PATIENT MARCIANO: Not Applicable Prescriptions: Tamsulosin [Flomax] 0.4 mg PO BEDTIME 14 Days #14 cap.er oxyCODONE 5 - 10 mg PO Q6H PRN #20 tab PRN Reason: Pain (Severe 7-10) Instructions: Kidney Stones, Gred-uz-[id number], Pain Medicine Instructions, [id number] Referrals: Lillie Llanos MD [Physician] - 1 Week Forms: ED Department Discharge Additional Instructions: Thank you for choosing the [facility] emergency department in [place] for your medical needs today. It was a pleasure caring for you. You were seen in the emergency department for back and abdominal pain. You were found to have a 5 mm left-sided kidney stone which I believe is causing your pain. There is no evidence of an infection at this point. The treatment for kidney stones is primarily oral fluids and pain control. I recommend [id number] extra strength acetaminophen (1000 mg every 6 hours) and ibuprofen (400 mg every 6 hours) to help treat your pain. I did prescribe a short course of oxycodone for severe, breakthrough pain along with tamsulosin to help the stone pass. You should follow-up with the urologist Dr. Santos in the next 1 to 2 weeks for reevaluation. Please return the emergency department immediately if your symptoms worsen or if you feel worse. The following information is given to patients seen in the emergency department who are being discharged. This information is to outline your options for follow-up care. We provide all patients seen in our emergency department with a follow-up referral. The need for follow-up, as well as the timing and circumstances, are variable depending upon the specifics of your emergency department visit. If you don't have a primary care physician on staff, we will provide you with a referral. We always advise you to contact your personal physician following an emergency department visit to inform them of the circumstance of the visit and for follow-up with them and/or the need for any referrals to a consulting specialist. The emergency department will also refer you to a specialist when appropriate. This referral assures that you have the opportunity for follow-up care with a specialist. All of these measure are taken in an effort to provide you with optimal care, which includes your follow-up. Under all circumstances we always encourage you to contact your private physician who remains a resource for coordinating your care. When calling for follow-up care, please make the office aware that this follow-up is from your recent emergency room visit. If for any reason you are refused follow-up, please contact the [facility] Emergency Department at and asked to speak to the emergency department charge nurse. If you do not have a primary care physician that is caring for you, you can contact these clinics below to set up an appointment to establish care: [facility] - Primary Care [address] [place] [id number] [facility] [address] [place] [id number] Sepsis Event Note (ED) - Evaluation Sepsis Screening Result: No Definite Risk - Focused Exam Vital Signs: Vital Signs Temp Pulse Resp BP Pulse Ox 02/07/20 13:46 82 126/71 99 02/07/20 10:59 37.1 C 80 18 136/86 98 - My Orders Last 24 Hours: My Active Orders 02/07/20 11:16 Saline Lock Insert [OM.PC] Stat - Assessment/Plan Last 24 Hours: My Active Orders 02/07/20 11:16 Saline Lock Insert [OM.PC] Stat
[2020-02-07 11:56] LABS: BLOOD UREA NITROGEN,BUN 10 mg/dL (7.0-18.0); CARBON DIOXIDE,CO2 24.7 mmol/L (21.0-32.0); CHLORIDE,CL 103 mmol/L (98-107); GLUCOSE RANDOM 105 mg/dL (74-106); POTASSIUM,K 4.1 mmol/L (3.5-5.1); SODIUM,NA 135 mmol/L (136-145)
--- NOTE | 2020-02-07 13:03 | CT ---
CT abdomen and pelvis Technique: Multiple axial sections were obtained from above the dome of the diaphragm inferiorly through the pubic symphysis. Intravenous contrast was utilized. No oral contrast has been given. Comparison: No prior abdominal imaging is available. Findings: Visualized lung bases show nothing acute. Liver contains no focal parenchymal abnormality. Spleen appears within normal limits. Adrenal glands show no nodule. Pancreas is within normal limits. Kidneys show symmetric contrast enhancement without mass. There is an area of scarring noted within the mid to upper right kidney. This appears to be old. Left kidney shows mild hydronephrosis which is caused by a proximal obstructing ureteral stone measuring 5 mm. This stone is located slightly past the UPJ. No additional ureteral calculi are seen. Pancreas appears within normal limits. Multiple calcified gallstones are seen within the gallbladder. Aorta shows no aneurysm. No retroperitoneal adenopathy or mesenteric abnormalities are seen. No pelvic mass or adenopathy is seen. Sterilization clips are noted within the pelvis. No free fluid or inflammatory change is appreciated. Appendix is seen which is normal in size. Bone window settings were reviewed. Slight disc space narrowing is noted at L4-5. Posterior disc bulge with calcification and posterior spurring is noted at L5-S1. Minimal scattered endplate osteophytes are seen. Impression: 1. 5 mm obstructing stone within the proximal left ureter causing proximal hydronephrosis. This stone occurs slightly past the UPJ. 2. Other findings as noted above which are nonacute. Diagnostic code #3 This report was dictated in MDT
[2020-02-07] MEDS ORDERED: Iopamidol 755 MG/ML 500 ML Multipack Bottle IVPUSH STA (13:12)
== END 2020-02-07 13:47 | disposition home or self-care (01) ==
LOC: MW.ED 10:41
DX: N13.2 Hydronephrosis with renal and ureteral calculous obstruction (principal); Z88.8 Allergy status to other drugs, medicaments and biological substances; Z79.899 Other long term (current) drug therapy
CPT/HCPCS: 74177; 80048; 81001; 81025; 85025; 99284; A9270; Q9967; 99283

== ENCOUNTER 2020-04-04 22:02 | Inpatient (IN) | payer MEDICAID, OTHER ==
[2020-04-04] MEDS ORDERED: Ketorolac 15 MG/ML SDV IVPUSH STA (22:31)
[2020-04-04] MEDS ORDERED: Sodium Chloride 0.9% 1,000 ML IV ONE (22:33)
[2020-04-04 23:09] LABS: CARBON DIOXIDE,CO2 26.9 mmol/L (21.0-32.0); POTASSIUM,K 3.5 mmol/L (3.5-5.1)
--- NOTE | 2020-04-04 23:49 | CT ---
INDICATION: Sided abdominal pain, history of kidney stones TECHNIQUE: CT abdomen and pelvis acquired without IV contrast. COMPARISON: 02/07/2020 FINDINGS: Lower chest: Unremarkable. Liver: Unremarkable. Spleen: Unremarkable. Pancreas: Unremarkable. Gallbladder and bile ducts: Multiple gallstones Kidneys: 6 millimeter calculus distal left ureter with severe left hydronephrosis. Adrenal glands: Unremarkable. GI tract: Unremarkable. Appendix is normal. Vascular structures: Unremarkable. Lymph nodes: Unremarkable. Miscellaneous: Unremarkable. No free air or significant free fluid. Pelvic Organs: Unremarkable. Bones: Unremarkable for age. IMPRESSION: 6 millimeter obstructing calculi distal left ureter with severe left hydronephrosis. Cholelithiasis. Please note that all CT scans at this facility use dose modulation, iterative reconstruction, and/or weight-based dosing when appropriate to reduce radiation dose to as low as reasonably achievable. Dictated by Diomedes Fraser MD @ Apr 04 2020 11:40PM Signed by Dr. Diomedes Fraser @ Apr 04 2020 11:48PM
[2020-04-05] MEDS ORDERED: Tamsulosin 0.4 MG Cap.ER PO ONE (00:05)
[2020-04-05] MEDS ORDERED: Sodium Chloride 0.9% 1,000 ML IV SCH (00:30)
[2020-04-05] MEDS ORDERED: Morphine 2 MG/ML SYRINGE IVPUSH PRN (00:58)
[2020-04-05] MEDS ORDERED: Ondansetron 4 MG/2 ML SDV IVPUSH PRN (00:59)
[2020-04-05] MEDS ORDERED: Pantoprazole 40 MG in Sodium Chloride 0.9% 10 ML IV SCH (01:00)
--- NOTE | 2020-04-05 01:40 | EDM.PDOC ---
ED HPI GENERAL MEDICAL PROBLEM - General Chief Complaint: Genitourinary Problem Stated Complaint: POSSIBLE UTI OR APPENDIX Time Seen by Provider: 04/04/20 22:21 - History of Present Illness INITIAL COMMENTS - FREE TEXT/NARRATIVE: CHIEF COMPLAINT(S): Left lower quadrant pain HISTORY OF PRESENT ILLNESS: This is a 34-year-old woman with a past medical history of nephrolithiasis who comes to the emergency department with a chief complaint of left lower quadrant pain. The patient states that immediately prior to arrival she started to experience left lower quadrant pain which starts in her left back which she describes as a stabbing constant pain rated 10 out of 10. She denies any alleviating factors. She does not know what makes it worse. The pain does radiate from the back to the front. She states that this feels s imilar to her prior episodes of kidney stones however this episode is worse. She stated that she is also experiencing decreased amount of urination but denies any dysuria, hematuria. She has not yet taken any pain medications. She denies any vaginal discharge or vaginal bleeding. She denies any history of ovarian torsion or ovarian cyst. She states that her last menstrual period was March 15, 2020. She denies any other symptoms. REVIEW OF SYSTEMS: Constitutional: Denies fever, chills. Eyes: Denies eye pain Ears, Nose, Mouth, & Throat: Denies earache Cardiovascular: Denies chest pain Respiratory: Denies shortness of breath Gastrointestinal: Positive for left lower quadrant abdominal pain associate with nausea. Denies vomiting, diarrhea, hematochezia Genitourinary: Positive for decreased urinary output. Denies hematuria, dysuria, vaginal bleeding, vaginal discharge MSK: Positive for left back pain Neurological: Denies blurred vision Psychiatric: Denies depression PAST MEDICAL HISTORY: As per history of present illness and as reviewed below otherwise noncontributory. SURGICAL HISTORY: As per history of present illness and as reviewed below otherwise noncontributory. LMP: March 15, 2020 SOCIAL HISTORY: As per history of present illness and as reviewed below otherwise noncontributory. FAMILY HISTORY: As per history of present illness and as reviewed below otherwise noncontributory. EXAMINATION OF ORGAN SYSTEMS/BODY AREAS: Constitutional: Blood pressure is 114/75, heart rate 73, respiratory rate 18 with an oxygen saturation 98% on room air. Temperature 36.0 General: Young woman who appears uncomfortable and walking around the room holding her left back Psychiatric: Appears anxious Eyes: No scleral icterus or conjunctival erythema ENMT: Moist mucous membranes. No pharyngeal erythema Cardiovascular: Regular, rate, and rhythym. No gallops, murmurs, or rubs. Bilateral upper extremity pulses symmetric and intact. No peripheral edema. No JVD. Respiratory: Lungs clear to auscultation bilaterally. No wheezes, rales, or rhonchi. Gastrointestinal: Soft, minimal tenderness in the left lower quadrant, nondistended normoactive bowel sounds no rebound or guarding Genitourinary: No suprapubic tenderness no CVA tenderness bilaterally. Musculoskeletal: Normal range of motion. Skin: No lesions or abrasions. Neurological: Alert, GCS 15 MEDICAL DECISION MAKING AND COURSE IN THE ED WITH INTERPRETATION/REVIEW OF DIAGNOSTIC STUDIES: This is a 34-year-old man with a past medical history of nephrolithiasis who comes to the emergency department with left back pain radiating to her left lower quadrant which feels similar to her prior episodes of nephrolithiasis. At this time I am concerned about the possibility of recurrence of nephrolithiasis. Will obtain CBC, BMP, urinalysis. We will provide the patient with Toradol 15 mg IV and obtain a CT abdomen pelvis without contrast to evaluate for obstructive nephrolithiasis. Will provide the patient with 1 L of normal saline. Laboratory analysis unremarkable except for an elevated creatinine of 1.1 otherwise unremarkable. Urinalysis was a 30 catch and was negative for leukocyte esterase, negative for nitrites, and positive for blood. WBC count 1-3 Interpretation: Hematuria. On reevaluation, the patient's pain was significantly improved. At this time pending imaging is CT. The radiological images were viewed by myself along with reading the report from the radiologist. CT abdomen pelvis without contrast reveals a 6 mm obstructing calculus in the distal left ureter with severe left hydronephrosis. There is cholelithiasis. After imaging I did contact urology on-call Dr. Llanos states that he plans to take the patient for treatment tomorrow morning and would like the patient admitted to the hospitalist with consult to urology. I contacted hospitalist on car who accepted the patient for inpatient telemetry. The patient will be admitted to the hospital. I did discuss this with the patient she was amenable to this plan. I also provide the patient with Flomax p.o. I also started the patient on maintenance IV fluids. At this time the patient had no more pain therefore no additional pain medication was provided DISPOSITION: Patient was admitted to the hospital in stable condition CONDITION: Serious PROCEDURES: None FINAL IMPRESSION(S)/DIAGNOSES: 1. Acute obstructing nephrolithiasis 2. Acute kidney injury 3. Acute hematuria secondary to #1 Ramo Lock M.D. Left Flank Pain Score (Numeric/FACES): 8 - Related Data Allergies Allergy/AdvReac Type Severity Reaction Status Date / Time diphenhydramine Allergy Hives Verified 04/04/20 22:12 [From Benadryl] Home Meds: Home Meds Carbidopa/Levodopa [Carbidopa-Levo 25-100 MG ODT] 1 tab PO DAILY 05/20/19 [History] Past Medical History - Past Health History Medical/Surgical History: Denies Medical/Surgical History HEENT History: Reports: None Cardiovascular History: Reports: None Respiratory History: Reports: None Gastrointestinal History: Reports: None Neurological History: Reports: Other (See Below) Other Neuro History: Dystonia Psychiatric History: Reports: None Endocrine/Metabolic History: Reports: None Hematologic History: Reports: None Immunologic History: Reports: None Oncologic (Cancer) History: Reports: None Dermatologic History: Reports: None - Infectious Disease History Infectious Disease History: Reports: None - Past Surgical History Head Surgeries/Procedures: Reports: None Female Surgical History: Reports: Section, Tubal Ligation Social & Family History - Family History Family Medical History: Noncontributory - Tobacco Use Smoking Status *Q: Never Smoker Second Hand Smoke Exposure: No - Caffeine Use Caffeine Use: Reports: None - Recreational Drug Use Recreational Drug Use: No ED ROS GENERAL - Review of Systems Review Of Systems: See Below ED EXAM, RENAL/ - Physical Exam Exam: See Below Course - Vital Signs Last Recorded V/S: Last Vital Signs Temp 36.0 C L 04/04/20 22:14 Pulse 73 04/04/20 22:14 Resp 18 04/04/20 22:14 BP 114/75 04/04/20 22:14 Pulse Ox 98 04/04/20 22:14 - Orders/Labs/Meds Orders: Medication Orders Lactated Ringer's (Ringers, Lactated) 1,000 mls @ 125 mls/hr IV ASDIRECTED REYNOLD Pantoprazole Sodium 40 mg/ (Sodium Chloride) 10 mls @ 300 mls/hr IV DAILY@2200 [facility] Morphine Sulfate (Morphine) 2 mg IVPUSH Q4H PRN PRN Reason: Pain Ondansetron HCl (Zofran) 4 mg IVPUSH Q4H PRN PRN Reason: Nausea/Vomiting Labs: Laboratory Tests 04/04/20 04/04/20 Range/Units 22:44 22:44 WBC 10.40 (4.0-11.0) K/uL RBC 4.42 (4.30-5.90) M/uL Hgb 12.6 (12.0-16.0) g/dL Hct 39.1 (36.0-46.0) % MCV 88.5 (80.0-98.0) fL MCH 28.5 (27.0-32.0) pg MCHC 32.2 (31.0-37.0) g/dL RDW Std Deviation 43.4 (28.0-62.0) fl RDW Coeff of Yeal 13 (11.0-15.0) % Plt Count 335 (150-400) K/uL MPV 9.70 (7.40-12.00) fL Neut % (Auto) 56.8 (48.0-80.0) % Lymph % (Auto) 27.9 (16.0-40.0) % [place] % (Auto) 12.3 (0.0-15.0) % Eos % (Auto) 2.4 (0.0-7.0) % Baso % (Auto) 0.6 (0.0-1.5) % Neut # (Auto) 5.9 H (1.4-5.7) K/uL Lymph # (Auto) 2.9 H (0.6-2.4) K/uL [place] # (Auto) 1.3 H (0.0-0.8) K/uL Eos # (Auto) 0.3 (0.0-0.7) K/uL Baso # (Auto) 0.1 (0.0-0.1) K/uL Nucleated RBC % 0.0 /100WBC Nucleated RBCs # 0 K/uL Sodium 140 (136-145) mmol/L Potassium 3.5 (3.5-5.1) mmol/L Chloride 102 (98-107) mmol/L Carbon Dioxide 26.9 (21.0-32.0) mmol/L BUN 13 (7.0-18.0) mg/dL Creatinine 1.1 H (0.6-1.0) mg/dL Est Cr Clr Drug Dosing 59.61 mL/min Estimated GFR (MDRD) 56.9 ml/min Glucose 119 H (74-106) mg/dL Calcium 8.8 (8.5-10.1) mg/dL Meds: Medications Generic Name Dose Route Start Last Admin Trade Name Freq PRN Reason Stop Dose Admin Lactated Ringer's 1,000 mls @ 125 mls/hr 04/05/20 01:00 Ringers, Lactated IV ASDIRECTED [facility] Pantoprazole Sodium 40 mg/ 10 mls @ 300 mls/hr 04/05/20 01:00 Sodium Chloride IV DAILY@2200 [facility] Morphine Sulfate 2 mg 04/05/20 00:58 Morphine IVPUSH Q4H PRN Pain Ondansetron HCl 4 mg 04/05/20 00:59 Zofran IVPUSH Q4H PRN Nausea/Vomiting Discontinued Medications Generic Name Dose Route Start Last Admin Trade Name Freq PRN Reason Stop Dose Admin Sodium Chloride 1,000 mls @ 999 mls/hr 04/04/20 22:33 04/04/20 22:43 Normal Saline IV 04/04/20 23:33 999 mls/hr .Bolus ONE Administration Sodium Chloride 1,000 mls @ 125 mls/hr 04/05/20 00:30 04/05/20 00:32 Normal Saline IV 125 mls/hr ASDIRECTED REYNOLD Administration Ketorolac Tromethamine 15 mg 04/04/20 22:31 04/04/20 22:42 Toradol IVPUSH 04/04/20 22:32 15 mg ONETIME STA Administration Tamsulosin HCl 0.4 mg 04/05/20 00:05 04/05/20 00:32 Flomax PO 04/05/20 00:06 0.4 mg ONETIME ONE Administration Departure - Departure Time of Disposition: 00:21 Disposition: Admitted As Inpatient 66 Clinical Impression: Nephrolithiasis - Discharge Information Sepsis Event Note (ED) - Evaluation Sepsis Screening Result: No Definite Risk - Focused Exam Vital Signs: Vital Signs Temp Pulse Resp BP Pulse Ox 04/04/20 22:14 36.0 C L 73 18 114/75 98
[2020-04-05] MEDS: Lactated Ringers 1,000 ML IV SCH ×2 (03:29→20:25)
[2020-04-05 06:37] LABS: BLOOD UREA NITROGEN,BUN 11 mg/dL (7.0-18.0); CARBON DIOXIDE,CO2 23.9 mmol/L (21.0-32.0); CHLORIDE,CL 109 mmol/L (98-107); GLUCOSE RANDOM 91 mg/dL (74-106); POTASSIUM,K 3.7 mmol/L (3.5-5.1); SODIUM,NA 142 mmol/L (136-145)
--- NOTE | 2020-04-05 08:35 | PCM.HP.2 ---
H&P History of Present Illness - General Date of Service: 04/05/20 Admit Problem/Dx: Admission Diagnosis/Problem Admission Diagnosis/Problem Kidney stone - History of Present Illness Initial Comments - Free Text/Narative: Patient is a 34-year-old woman with a past medical history of nephrolithiasis, dystonia who comes to the emergency department with a chief complaint of left lower quadrant pain. The patient states she started to experience a stabbing, constant pain in her left lower quadrant, pain rated 10 out of 10. She denies any alleviating factors. The pain does radiate from the back to the front. She has had kidney stones in past but they passed spontaneously, she doesn't know the composition of the stones. She stated that she is also experiencing decreased amount of urination but denies any dysuria, hematuria. She denies any vaginal discharge or vaginal bleeding, history of ovarian torsion or ovarian cyst. She states that her last menstrual period was March 15, 2020. Laboratory analysis done in the ER was unremarkable except for an elevated creatinine of 1.1 Urinalysis was a 30 catch and was negative for leukocyte esterase, negative for nitrites, and positive for blood. WBC count 1-3 Interpretation: Hematuria. CT abdomen pelvis without contrast reveals a 6 mm obstructing calculus in the distal left ureter with severe left hydronephrosis. There is cholelithiasis. Urology recommenced admission to hospitalist and will be taken to OR for possible nephrostomy tube placement in AM. Left Flank Pain Score (Numeric/FACES): 8 - Related Data Allergies/Adverse Reactions: Allergies Allergy/AdvReac Type Severity Reaction Status Date / Time diphenhydramine Allergy Hives Verified 04/05/20 03:08 [From Benadryl] Home Medications: Home Meds Carbidopa/Levodopa [Carbidopa-Levo 25-100 MG ODT] 1 tab PO DAILY 05/20/19 [History] Past Medical History - Past Health History Medical/Surgical History: Denies Medical/Surgical History HEENT History: Reports: None Cardiovascular History: Reports: None Respiratory History: Reports: None Gastrointestinal History: Reports: None Neurological History: Reports: Other (See Below) Other Neuro History: Dystonia Psychiatric History: Reports: None Endocrine/Metabolic History: Reports: None Hematologic History: Reports: None Immunologic History: Reports: None Oncologic (Cancer) History: Reports: None Dermatologic History: Reports: None - Infectious Disease History Infectious Disease History: Reports: None - Past Surgical History Head Surgeries/Procedures: Reports: None Female Surgical History: Reports: Section, Tubal Ligation Social & Family History - Family History Family Medical History: Noncontributory - Tobacco Use Smoking Status *Q: Never Smoker Second Hand Smoke Exposure: No - Caffeine Use Caffeine Use: Reports: Soda, Tea - Recreational Drug Use Recreational Drug Use: No H&P Review of Systems - Review of Systems: Review Of Systems: See Below General: Denies: Chills, Malaise, Weakness Pulmonary: Denies: Shortness of Breath, Wheezing Cardiovascular: Denies: Chest Pain, Palpitations, Dyspnea on Exertion Gastrointestinal: Reports: Abdominal Pain, Anorexia, Decreased Appetite, Nausea. Denies: Black Stool, Bloody Stool, Constipation, Hematemesis, Hematochezia, Vomiting Genitourinary: Reports: Retention. Denies: Dysuria, Frequency, Burning, Pain Musculoskeletal: Denies: Neck Pain, Arm Pain Skin: Denies: Cyanosis, Jaundice, Mottled Exam - Exam Exam: See Below - Vital Signs Vital Signs: Last Vital Signs Temp 36.5 C 04/05/20 04:00 Pulse 82 04/05/20 04:00 Resp 16 04/05/20 04:00 BP 112/65 04/05/20 04:00 Pulse Ox 96 04/05/20 04:51 Weight: 79.832 kg - Exam General: Alert, Oriented Neck: Supple, Trachea Midline Lungs: Clear to Auscultation, Normal Respiratory Effort Cardiovascular: Regular Rate, Regular Rhythm GI/Abdominal Exam: Normal Bowel Sounds, Soft, Non-Tender, No Mass, Guarding Back Exam: Normal Inspection, Full Range of Motion, CVA Tenderness (L). No: CVA Tenderness (R), Decreased Range of Motion - Patient Data Lab Results Last 24 hrs: Laboratory Results - last 24 hr 04/04/20 04/04/20 04/05/20 Range/Units 22:44 22:44 00:30 WBC 10.40 (4.0-11.0) K/uL RBC 4.42 (4.30-5.90) M/uL Hgb 12.6 (12.0-16.0) g/dL Hct 39.1 (36.0-46.0) % MCV 88.5 (80.0-98.0) fL MCH 28.5 (27.0-32.0) pg MCHC 32.2 (31.0-37.0) g/dL RDW Std Deviation 43.4 (28.0-62.0) fl RDW Coeff of Yael 13 (11.0-15.0) % Plt Count 335 (150-400) K/uL MPV 9.70 (7.40-12.00) fL Neut % (Auto) 56.8 (48.0-80.0) % Lymph % (Auto) 27.9 (16.0-40.0) % [place] % (Auto) 12.3 (0.0-15.0) % Eos % (Auto) 2.4 (0.0-7.0) % Baso % (Auto) 0.6 (0.0-1.5) % Neut # (Auto) 5.9 H (1.4-5.7) K/uL Lymph # (Auto) 2.9 H (0.6-2.4) K/uL [place] # (Auto) 1.3 H (0.0-0.8) K/uL Eos # (Auto) 0.3 (0.0-0.7) K/uL Baso # (Auto) 0.1 (0.0-0.1) K/uL Nucleated RBC % 0.0 /100WBC Nucleated RBCs # 0 K/uL Sodium 140 (136-145) mmol/L Potassium 3.5 (3.5-5.1) mmol/L Chloride 102 (98-107) mmol/L Carbon Dioxide 26.9 (21.0-32.0) mmol/L BUN 13 (7.0-18.0) mg/dL Creatinine 1.1 H (0.6-1.0) mg/dL Est Cr Clr Drug Dosing 59.61 mL/min Estimated GFR (MDRD) 56.9 ml/min Glucose 119 H (74-106) mg/dL Calcium 8.8 (8.5-10.1) mg/dL Phosphorus (2.6-4.7) mg/dL Magnesium (1.8-2.4) mg/dL Urine Color YELLOW Urine Appearance SLT CLOUDY Urine pH 5.5 (5.0-8.0) Ur Specific [place] >= 1.030 (1.001-1.035) Urine Protein 30 H (NEGATIVE) mg/dL Urine Glucose (UA) NEGATIVE (NEGATIVE) mg/dL Urine Ketones 15 H (NEGATIVE) mg/dL Urine Occult Blood LARGE H (NEGATIVE) Urine Nitrite NEGATIVE (NEGATIVE) Urine Bilirubin SMALL H (NEGATIVE) Urine Ictotest NEGATIVE Urine Urobilinogen 0.2 (<2.0) EU/dL Ur Leukocyte Esterase NEGATIVE (NEGATIVE) Urine RBC 70-80 (0-2/HPF) Urine WBC 1-3 (0-5/HPF) Ur Epithelial Cells MODERATE (NONE-FEW) Calcium Oxalate Crystal FEW (NEGATIVE) Urine Bacteria FEW (NEGATIVE) SARS-CoV-2 RNA (BACILIO) (NEGATIVE) 04/05/20 04/05/20 04/05/20 Range/Units 00:35 05:40 05:40 WBC 10.79 (4.0-11.0) K/uL RBC 4.03 L (4.30-5.90) M/uL Hgb 11.4 L (12.0-16.0) g/dL Hct 35.8 L (36.0-46.0) % MCV 88.8 (80.0-98.0) fL MCH 28.3 (27.0-32.0) pg MCHC 31.8 (31.0-37.0) g/dL RDW Std Deviation 43.6 (28.0-62.0) fl RDW Coeff of Yael 13 (11.0-15.0) % Plt Count 303 (150-400) K/uL MPV 9.90 (7.40-12.00) fL Neut % (Auto) 67.4 (48.0-80.0) % Lymph % (Auto) 19.8 (16.0-40.0) % [place] % (Auto) 11.2 (0.0-15.0) % Eos % (Auto) 1.1 (0.0-7.0) % Baso % (Auto) 0.5 (0.0-1.5) % Neut # (Auto) 7.3 H (1.4-5.7) K/uL Lymph # (Auto) 2.1 (0.6-2.4) K/uL [place] # (Auto) 1.2 H (0.0-0.8) K/uL Eos # (Auto) 0.1 (0.0-0.7) K/uL Baso # (Auto) 0.1 (0.0-0.1) K/uL Nucleated RBC % 0.0 /100WBC Nucleated RBCs # 0 K/uL Sodium 142 (136-145) mmol/L Potassium 3.7 (3.5-5.1) mmol/L Chloride 109 H (98-107) mmol/L Carbon Dioxide 23.9 (21.0-32.0) mmol/L BUN 11 (7.0-18.0) mg/dL Creatinine 0.9 (0.6-1.0) mg/dL Est Cr Clr Drug Dosing 72.86 mL/min Estimated GFR (MDRD) > 60.0 ml/min Glucose 91 (74-106) mg/dL Calcium 8.0 L (8.5-10.1) mg/dL Phosphorus 2.9 (2.6-4.7) mg/dL Magnesium 2.1 (1.8-2.4) mg/dL Urine Color Urine Appearance Urine pH (5.0-8.0) Ur Specific [place] (1.001-1.035) Urine Protein (NEGATIVE) mg/dL Urine Glucose (UA) (NEGATIVE) mg/dL Urine Ketones (NEGATIVE) mg/dL Urine Occult Blood (NEGATIVE) Urine Nitrite (NEGATIVE) Urine Bilirubin (NEGATIVE) Urine Ictotest Urine Urobilinogen (<2.0) EU/dL Ur Leukocyte Esterase (NEGATIVE) Urine RBC (0-2/HPF) Urine WBC (0-5/HPF) Ur Epithelial Cells (NONE-FEW) Calcium Oxalate Crystal (NEGATIVE) Urine Bacteria (NEGATIVE) SARS-CoV-2 RNA (BACILIO) NEGATIVE (NEGATIVE) Result Diagrams: 04/05/20 05:40 04/05/20 05:40 Sepsis Event Note - Evaluation Sepsis Screening Result: No Definite Risk - Focused Exam Vital Signs: Vital Signs Temp Pulse Pulse Resp BP BP Pulse Ox 04/05/20 04:51 04/05/20 04:00 36.5 C 82 16 112/65 96 04/05/20 03:00 36.7 C 86 16 109/66 96 04/05/20 02:30 80 18 105/82 98 04/04/20 22:14 36.0 C L 73 18 114/75 98 Pulse Ox 04/05/20 04:51 96 04/05/20 04:00 04/05/20 03:00 04/05/20 02:30 04/04/20 22:14 - Problem List (1) Hydronephrosis SNOMED Code(s): 59595038 ICD Code: N13.30 - UNSPECIFIED HYDRONEPHROSIS Status: Acute Current Visit: Yes (2) Nephrolithiasis SNOMED Code(s): 77077882 ICD Code: N20.0 - CALCULUS OF KIDNEY Status: Acute Current Visit: Yes Problem List Initiated/Reviewed/Updated: Yes Orders Last 24hrs: Active Orders 24 hr Category Date Time Status Admission Status [Patient Status] [ADT] Stat ADT 04/05/20 00:21 Active Antiembolic Devices [RC] PER UNIT ROUTINE Care 04/05/20 01:02 Active Communication Order [RC] PER UNIT ROUTINE Care 04/05/20 04:52 Active Influenza Vaccine Charge [RC] .DISCHARGE Care 04/05/20 03:21 Active Notify Provider Consults [RC] ASDIRECTED Care 04/05/20 00:24 Active Oxygen Therapy [RC] ASDIRECTED Care 04/05/20 00:56 Active Telemetry Monitoring [Cardiac Monitoring] [RC] . Care 04/05/20 00:38 Active DIRECTED Vital Signs [RC] Q4H Care 04/05/20 00:56 Active Consult to Physician [CONS] Stat Cons 04/05/20 00:23 Active NPO Now [Nothing per Oral Now Diet] [DIET] Diet 04/05/20 Breakfast Active FLU Vacc [id number] 36MOS UP/PF [Afluria Quad 2020-21 ( Med 04/05/20 09:00 Once 3YR UP)] 60 mcg IM .ONCE ONE Lactated Ringers [Ringers, Lactated] 1,000 ml Med 04/05/20 01:00 Active IV ASDIRECTED Morphine Med 04/05/20 00:58 Active 2 mg IVPUSH Q4H PRN Ondansetron [Zofran] Med 04/05/20 00:59 Active 4 mg IVPUSH Q4H PRN Pantoprazole [ProTONIX IV] 40 mg Med 04/05/20 01:00 Active Sodium Chloride 0.9% [Normal Saline] 10 ml IV DAILY@2200 SCD [Sequential Compression Device] [OM.PC] Routine Oth 04/05/20 01:01 Ordered Medication Orders Lactated Ringer's (Ringers, Lactated) 1,000 mls @ 125 mls/hr IV ASDIRECTED REYNOLD Last Admin: 04/05/20 03:29 Dose: 125 mls/hr Documented by: ZIA Pantoprazole Sodium 40 mg/ (Sodium Chloride) 10 mls @ 300 mls/hr IV DAILY@2200 RE[facility]OLD Last Admin: 04/05/20 03:03 Dose: 300 mls/hr Documented by: ZIA Influenza Virus Vaccine (Afluria Quad 2019- (3yr Up)) 60 mcg IM .ONCE ONE Stop: 04/05/20 09:01 Morphine Sulfate (Morphine) 2 mg IVPUSH Q4H PRN PRN Reason: Pain Ondansetron HCl (Zofran) 4 mg IVPUSH Q4H PRN PRN Reason: Nausea/Vomiting Assessment/Plan Comment:: 34 y/o F admitted for left severe hydronephrosis secondary to nephrolithiasis admit to tele start IV fluids NPO for now DuoNebs IV morphine for pain SCD for DVT ppx Urology on board
[2020-04-05] MEDS ORDERED: FLU Vacc QS2020-21 36MOS UP/PF 60 MCG/0.5 ML Syringe IM ONE (09:00)
[2020-04-05] MEDS ORDERED: Propofol 200 MG/20 ML SDV ONE (11:04)
[2020-04-05] MEDS ORDERED: Midazolam 1 MG/ML 2 ML SDV ONE (11:04)
[2020-04-05] MEDS ORDERED: fentaNYL 100 MCG/2 ML SDV ONE ×2 (11:04→16:42)
[2020-04-05] MEDS ORDERED: Lidocaine 2% 5 ML SDV ONE (11:04)
[2020-04-05] MEDS ORDERED: Ondansetron 4 MG/2 ML SDV ONE (11:04)
[2020-04-05] MEDS ORDERED: Succinylcholine/Sod PF 100 MG/5 ML SYRINGE IV ONE (11:05)
[2020-04-05] MEDS ORDERED: Iopamidol 408 MG/ML 20 ML SDV ONE ×2 (11:21→11:50)
--- NOTE | 2020-04-05 11:32 | PCM.PREANE ---
Preanesthetic Assessment - Procedure Proposed Procedure: ureteroscopy stone removal - Anesthesia/Transfusion/Family Hx Anesthesia History: Prior Anesthesia Without Reaction Family History of Anesthesia Reaction: No Transfusion History: No Prior Transfusion(s) - Review of Systems General: No Symptoms Pulmonary: No Symptoms Cardiovascular: No Symptoms Gastrointestinal: No Symptoms Neurological: No Symptoms Other: Reports: None - Physical Assessment NPO Status Date: 04/04/20 NPO Status Time: 14:30 Vital Signs: Last Vital Signs Temp 36.7 C 04/05/20 09:00 Pulse 100 04/05/20 09:00 Resp 16 04/05/20 09:00 BP 117/62 04/05/20 09:00 Pulse Ox 97 04/05/20 09:00 Height: 5 ft 3 in Weight: 79.832 kg ASA Class: 2 Mental Status: Alert & Oriented x3 Airway Class: Mallampati = 1 Dentition: Reports: Normal Dentition Thyro-Mental Finger Breadths: 3 Mouth Opening Finger Breadths: 3 ROM/Head Extension: Full Lungs: Clear to Auscultation, Normal Respiratory Effort Cardiovascular: Regular Rate, Regular Rhythm - Lab Values: Laboratory Last Values WBC 10.79 K/uL (4.0-11.0) 04/05/20 05:40 RBC 4.03 M/uL (4.30-5.90) L 04/05/20 05:40 Hgb 11.4 g/dL (12.0-16.0) L 04/05/20 05:40 Hct 35.8 % (36.0-46.0) L 04/05/20 05:40 MCV 88.8 fL (80.0-98.0) 04/05/20 05:40 MCH 28.3 pg (27.0-32.0) 04/05/20 05:40 MCHC 31.8 g/dL (31.0-37.0) 04/05/20 05:40 RDW Std Deviation 43.6 fl (28.0-62.0) 04/05/20 05:40 RDW Coeff of Yael 13 % (11.0-15.0) 04/05/20 05:40 Plt Count 303 K/uL (150-400) 04/05/20 05:40 MPV 9.90 fL (7.40-12.00) 04/05/20 05:40 Neut % (Auto) 67.4 % (48.0-80.0) 04/05/20 05:40 Lymph % (Auto) 19.8 % (16.0-40.0) 04/05/20 05:40 [place] % (Auto) 11.2 % (0.0-15.0) 04/05/20 05:40 Eos % (Auto) 1.1 % (0.0-7.0) 04/05/20 05:40 Baso % (Auto) 0.5 % (0.0-1.5) 04/05/20 05:40 Neut # (Auto) 7.3 K/uL (1.4-5.7) H 04/05/20 05:40 Lymph # (Auto) 2.1 K/uL (0.6-2.4) 04/05/20 05:40 [place] # (Auto) 1.2 K/uL (0.0-0.8) H 04/05/20 05:40 Eos # (Auto) 0.1 K/uL (0.0-0.7) 04/05/20 05:40 Baso # (Auto) 0.1 K/uL (0.0-0.1) 04/05/20 05:40 Nucleated RBC % 0.0 /100WBC 04/05/20 05:40 Nucleated RBCs # 0 K/uL 04/05/20 05:40 Sodium 142 mmol/L (136-145) 04/05/20 05:40 Potassium 3.7 mmol/L (3.5-5.1) 04/05/20 05:40 Chloride 109 mmol/L (98-107) H 04/05/20 05:40 Carbon Dioxide 23.9 mmol/L (21.0-32.0) 04/05/20 05:40 BUN 11 mg/dL (7.0-18.0) 04/05/20 05:40 Creatinine 0.9 mg/dL (0.6-1.0) 04/05/20 05:40 Est Cr Clr Drug Dosing 72.86 mL/min 04/05/20 05:40 Estimated GFR (MDRD) > 60.0 ml/min 04/05/20 05:40 Glucose 91 mg/dL (74-106) 04/05/20 05:40 Calcium 8.0 mg/dL (8.5-10.1) L 04/05/20 05:40 Phosphorus 2.9 mg/dL (2.6-4.7) 04/05/20 05:40 Magnesium 2.1 mg/dL (1.8-2.4) 04/05/20 05:40 Urine Color YELLOW 04/05/20 00:30 Urine Appearance SLT CLOUDY 04/05/20 00:30 Urine pH 5.5 (5.0-8.0) 04/05/20 00:30 Ur Specific [place] >= 1.030 (1.001-1.035) 04/05/20 00:30 Urine Protein 30 mg/dL (NEGATIVE) H 04/05/20 00:30 Urine Glucose (UA) NEGATIVE mg/dL (NEGATIVE) 04/05/20 00:30 Urine Ketones 15 mg/dL (NEGATIVE) H 04/05/20 00:30 Urine Occult Blood LARGE (NEGATIVE) H 04/05/20 00:30 Urine Nitrite NEGATIVE (NEGATIVE) 04/05/20 00:30 Urine Bilirubin SMALL (NEGATIVE) H 04/05/20 00:30 Urine Ictotest NEGATIVE 04/05/20 00:30 Urine Urobilinogen 0.2 EU/dL (<2.0) 04/05/20 00:30 Ur Leukocyte Esterase NEGATIVE (NEGATIVE) 04/05/20 00:30 Urine RBC 70-80 (0-2/HPF) 04/05/20 00:30 Urine WBC 1-3 (0-5/HPF) 04/05/20 00:30 Ur Epithelial Cells MODERATE (NONE-FEW) 04/05/20 00:30 Calcium Oxalate Crystal FEW (NEGATIVE) 04/05/20 00:30 Urine Bacteria FEW (NEGATIVE) 04/05/20 00:30 SARS-CoV-2 RNA (BACILIO) NEGATIVE (NEGATIVE) 04/05/20 00:35 - Allergies Allergies/Adverse Reactions: Allergies Allergy/AdvReac Type Severity Reaction Status Date / Time diphenhydramine Allergy Hives Verified 04/05/20 03:08 [From Benadryl] - Anesthesia Plan Pre-Op Medication Ordered: None - Acknowledgements Anesthesia Type Planned: General Anesthesia Pt an Appropriate Candidate for the Planned Anesthesia: Yes Alternatives and Risks of Anesthesia Discussed w Pt/Guardian: Yes Pt/Guardian Understands and Agrees with Anesthesia Plan: Yes PreAnesthesia Questionnaire - Past Health History Medical/Surgical History: Denies Medical/Surgical History HEENT History: Reports: None Cardiovascular History: Reports: None Respiratory History: Reports: None Gastrointestinal History: Reports: None Neurological History: Reports: Other (See Below) Other Neuro History: Dystonia Psychiatric History: Reports: None Endocrine/Metabolic History: Reports: None Hematologic History: Reports: None Immunologic History: Reports: None Oncologic (Cancer) History: Reports: None Dermatologic History: Reports: None - Infectious Disease History Infectious Disease History: Reports: None - Past Surgical History Head Surgeries/Procedures: Reports: None Female Surgical History: Reports: Section, Tubal Ligation - SUBSTANCE USE Smoking Status *Q: Never Smoker Second Hand Smoke Exposure: No Recreational Drug Use History: No - HOME MEDS Home Medications: Home Meds Carbidopa/Levodopa [Carbidopa-Levo 25-100 MG ODT] 1 tab PO DAILY 05/20/19 [Histo ry] - CURRENT (IN HOUSE) MEDS Current Meds: Current Medications Lactated Ringer's (Ringers, Lactated) 1,000 mls @ 125 mls/hr IV ASDIRECTED [facility] Last Admin: 04/05/20 03:29 Dose: 125 mls/hr Documented by: Pantoprazole Sodium 40 mg/ (Sodium Chloride) 10 mls @ 300 mls/hr IV DAILY@2200 [facility] Last Admin: 04/05/20 03:03 Dose: 300 mls/hr Documented by: Morphine Sulfate (Morphine) 2 mg IVPUSH Q4H PRN PRN Reason: Pain Ondansetron HCl (Zofran) 4 mg IVPUSH Q4H PRN PRN Reason: Nausea/Vomiting Discontinued Medications Fentanyl (Sublimaze) Confirm Administered Dose 100 mcg .ROUTE .STK-MED ONE Stop: 04/05/20 11:05 Sodium Chloride (Normal Saline) 1,000 mls @ 999 mls/hr IV .Bolus ONE Stop: 04/04/20 23:33 Last Admin: 04/04/20 22:43 Dose: 999 mls/hr Documented by: Sodium Chloride (Normal Saline) 1,000 mls @ 125 mls/hr IV ASDIRECTED [facility] Last Admin: 04/05/20 00:32 Dose: 125 mls/hr Documented by: Influenza Virus Vaccine (Afluria Quad 2019-21 (3yr Up)) 60 mcg IM .ONCE ONE Stop: 04/05/20 09:01 Iopamidol (Isovue-M 200 (41%)) Confirm Administered Dose 20 ml .ROUTE .STK-MED ONE Stop: 04/05/20 11:22 Ketorolac Tromethamine (Toradol) 15 mg IVPUSH ONETIME STA Stop: 04/04/20 22:32 Last Admin: 04/04/20 22:42 Dose: 15 mg Documented by: Lidocaine (Xylocaine-Mpf 2%) Confirm Administered Dose 5 ml .ROUTE .STK-MED ONE Stop: 04/05/20 11:05 Midazolam HCl (Versed 1 Mg/Ml) Confirm Administered Dose 2 mg .ROUTE .STK-MED ONE Stop: 04/05/20 11:05 Ondansetron HCl (Zofran) Confirm Administered Dose 4 mg .ROUTE .STK-MED ONE Stop: 04/05/20 11:05 Propofol (Diprivan 20 Ml) Confirm Administered Dose 200 mg .ROUTE .STK-MED ONE Stop: 04/05/20 11:05 Tamsulosin HCl (Flomax) 0.4 mg PO ONETIME ONE Stop: 04/05/20 00:06 Last Admin: 04/05/20 00:32 Dose: 0.4 mg Documented by:
[2020-04-05] MEDS ORDERED: ceFAZolin/Dextrose,Iso-Osmotic 2 GM/50 ML Duplex Bag IV ONE (16:39)
[2020-04-05] MEDS ORDERED: ceFAZolin 2 GM in Premix Bag 1 BAG IV ONE (16:44)
[2020-04-05] MEDS ORDERED: fentaNYL 100 MCG/2 ML SDV IVPUSH PRN (16:46)
[2020-04-05] MEDS ORDERED: Ketorolac 30 MG/ML SDV ONE (17:25)
--- NOTE | 2020-04-05 18:14 | OR ---
SURGEON: Lillie Llanos M.D. DATE OF PROCEDURE: 04/05/2020 PREOPERATIVE DIAGNOSIS: Left lower ureteral stone, 6 mm, with left lower ureteral narrowing. POSTOPERATIVE DIAGNOSIS: Left lower ureteral stone, 6 mm, with left lower ureteral narrowing. OPERATION: Left ureteroscopy, dilatation the left lower ureter, laser lithotripsy, stone removal, and double-J stent placement. DESCRIPTION OF PROCEDURE: The patient was given general anesthesia. She was in dorsal lithotomy position, prepped and draped in sterile drapes. Cystourethroscopy was done that was normal. A guidewire was advanced alongside the stone all the way up into the left renal pelvis. The lower ureter was then dilated using UroMax II balloon dilator to approximately 15-Kazakh, that had to be done twice because after the first time, ureteroscopy was done and showed narrowing below the stone and it was not easy or comfortable to the get through the narrowing with the ureteroscope, so I decided to put the UroMax back in beyond the point of narrowing and now was dilated under fluoroscopy with the band actually opening up. The guidewire was still in place. The rigid ureteroscope was advanced in the left lower ureter. The stone was broken up into smaller pieces. The largest one was removed with a grasper. The rest were also removed and/or washed out. At that point, a 6-Kazakh 26 cm double-J stent was placed over the guidewire. Position was confirmed with fluoroscopy. The bladder was emptied, and the patient was moved to recovery room in good condition. Stone specimen was submitted. PLAN: The patient will go home. She will be seen in the office in 1 week to have the double-J stent taken out. She can go home today. WYATT / MAE /[id number]
--- NOTE | 2020-04-05 18:25 | PCM.POSTAN ---
POST ANESTHESIA ASSESSMENT - MENTAL STATUS Mental Status: Alert, Oriented - VITAL SIGNS Vital Signs: Last Vital Signs Temp 37.0 C 04/05/20 17:37 Pulse 114 H 04/05/20 18:13 Resp 13 04/05/20 18:18 BP 119/77 04/05/20 18:18 Pulse Ox 95 04/05/20 18:18 - RESPIRATORY Respiratory Status: Respiratory Rate WNL, Airway Patent, O2 Saturation Stable - CARDIOVASCULAR CV Status: Pulse Rate WNL, Blood Pressure Stable - GASTROINTESTINAL GI Status: No Symptoms - PAIN Pain Score: 0 - POST OP HYDRATION Hydration Status: Adequate & Stable
--- NOTE | 2020-04-05 18:50 | PCM48HPAN ---
Post Anesthesia Note - EVALUATION WITHIN 48HRS OF ANESTHETIC Vital Signs in Normal Range: Yes Patient Participated in Evaluation: Yes Respiratory Function Stable: Yes Airway Patent: Yes Cardiovascular Function Stable: Yes Hydration Status Stable: Yes Pain Control Satisfactory: Yes Nausea and Vomiting Control Satisfactory: Yes Mental Status Recovered: Yes Vital Signs: Last Vital Signs Temp 37.0 C 04/05/20 17:37 Pulse 102 H 04/05/20 18:23 Resp 18 04/05/20 18:23 BP 112/68 04/05/20 18:23 Pulse Ox 99 04/05/20 18:23
--- NOTE | 2020-04-06 08:43 | CR ---
Indication: Stone removal. Technique: 2 intraoperative views of the left abdomen. Comparison: CT scan from April 04, 2020. Findings: Images demonstrate a glide wire within the left renal collecting system from a retrograde approach. There is been placement of a left ureteral stent. 15.7 seconds of intraoperative fluoroscopy time was provided. Impression: Intraoperative images obtained. Dictated by Benita Damon MD @ Apr 06 2020 8:39AM Signed by Dr. Benita Damon @ Apr 06 2020 8:42AM
[2020-04-06] MEDS ORDERED: Carbidopa/Levodopa 25-100 MG Tab PO SCH (09:00)
--- NOTE | 2020-04-07 09:44 | CONS ---
DATE OF CONSULTATION: 04/05/2020 DATE OF : 1985 PRIMARY CARE PHYSICIAN: Selena Purdy NP HISTORY OF PRESENT ILLNESS: A 34-year-old who presented to the emergency room with sudden onset of left flank pain. She had a CT scan that showed a 6 mm left lower ureteral stone about 2 cm proximal to the left UVJ. Her UA was negative for UTI. Her renal function is normal with serum creatinine of 0.9. PAST MEDICAL HISTORY: Urinary stones in the past; however, these have been smaller in the past, and she passed them on her own. No health problems otherwise. PHYSICAL EXAMINATION: GENERAL: She is alert and oriented. She currently is not in pain. VITAL SIGNS: Normal. HEART: Normal sinus rhythm. LUNGS: Clear. ABDOMEN: Negative. DIAGNOSIS: Left lower ureteral stone. PLAN: Left ureteroscopy and stone removal today. WYATT WALL /[id number]
--- NOTE | 2020-04-09 12:49 | PCM.DCSUM1 ---
Discharge Summary - Hospital Course Free Text/Narrative:: Patient is a 34-year-old woman with a past medical history of nephrolithiasis, dystonia came to the emergency department with a chief complaint of left lower quadrant pain. T Laboratory analysis done in the ER was unremarkable except for an elevated creatinine of 1.1 Urinalysis was a 30 catch and was negative for leukocyte esterase, negative for nitrites, and positive for blood. WBC count 1-3 Interpretation: Hematuria. CT abdomen pelvis without contrast reveals a 6 mm obstructing calculus in the distal left ureter with severe left hydronephrosis. There is cholelithiasis. Urology recommenced admission to hospitalist and will be taken to OR for poss ible nephrostomy tube placement. Patient was admitted, started on IV pain medications, IV fluids, next day shes underwent left ureteroscopy, laser lithotripsy, and double-j stent placement. Patient was observed post procedure for few more hours. Her pain was much better and she requested to be discharged the same day. Patient was medically stable and discharged with recommendations to fu with urology upon dc in 1 week. - Discharge Data Discharge Date: 04/05/20 Discharge Disposition: Home, Self-Care 01 Condition: Good - Referral to Home Health Primary Care Physician: Selena Purdy NP - Discharge Diagnosis/Problem(s) (1) Hydronephrosis SNOMED Code(s): 03802552 ICD Code: N13.30 - UNSPECIFIED HYDRONEPHROSIS Status: Acute (2) Nephrolithiasis SNOMED Code(s): 07187981 ICD Code: N20.0 - CALCULUS OF KIDNEY Status: Acute - Patient Summary/Data Consults: Consultations 04/05/20 00:23 Consult to Physician [CONS] Stat - Patient Instructions Activity: As Tolerated Driving: Do Not Drive Showering/Bathing: Shower in AM - Discharge Plan Home Medications: Home Meds Carbidopa/Levodopa [Carbidopa-Levo 25-100 MG ODT] 1 tab PO DAILY 05/20/19 [History] Patient Handouts: Kidney Stones Referrals: Lillie Llanos MD [Physician] - - Discharge Summary/Plan Comment DC Time >30 min.: No - Patient Data Vitals - Most Recent: Last Vital Signs Temp 36.6 C 04/05/20 23:00 Pulse 85 10/03/20 23:00 Resp 16 04/05/20 23:00 BP 109/65 04/05/20 23:00 Pulse Ox 95 04/05/20 23:00 Weight - Most Recent: 79.832 kg Med Orders - Current: Current Medications Discontinued Medications Carbidopa/Levodopa (Sinemet 25-100 Mg) 1 tab PO DAILY [facility] Cefazolin Sodium/Dextrose (Ancef) Confirm Administered Dose 2 gm IV .STK-MED ONE Stop: 04/05/20 16:40 Fentanyl (Sublimaze) Confirm Administered Dose 100 mcg .ROUTE .STK-MED ONE Stop: 04/05/20 11:05 Fentanyl (Sublimaze) Confirm Administered Dose 100 mcg .ROUTE .STK-MED ONE Stop: 04/05/20 16:43 Fentanyl (Sublimaze) 50 mcg IVPUSH Q5M PRN PRN Reason: Pain (severe 7-10) Stop: 04/06/20 16:46 Sodium Chloride (Normal Saline) 1,000 mls @ 999 mls/hr IV .Bolus ONE Stop: 04/04/20 23:33 Last Admin: 04/04/20 22:43 Dose: 999 mls/hr Documented by: Sodium Chloride (Normal Saline) 1,000 mls @ 125 mls/hr IV ASDIRECTED [facility] Last Admin: 04/05/20 00:32 Dose: 125 mls/hr Documented by: Lactated Ringer's (Ringers, Lactated) 1,000 mls @ 125 mls/hr IV ASDIRECTED [facility] Last Admin: 04/05/20 20:25 Dose: 125 mls/hr Documented by: Pantoprazole Sodium 40 mg/ (Sodium Chloride) 10 mls @ 300 mls/hr IV DAILY@2200 [facility] Last Admin: 04/05/20 03:03 Dose: 300 mls/hr Documented by: Cefazolin Sodium/Dextrose 2 gm (/ Premix) 50 mls @ 100 mls/hr IV ONETIME ONE Stop: 04/05/20 17:13 Last Admin: 04/05/20 16:40 Dose: 100 mls/hr Documented by: Influenza Virus Vaccine (Afluria Quad 2020-21 (3yr Up)) 60 mcg IM .ONCE ONE Stop: 04/05/20 09:01 Iopamidol (Isovue-M 200 (41%)) Confirm Administered Dose 20 ml .ROUTE .STK-MED ONE Stop: 04/05/20 11:22 Iopamidol (Isovue-M 200 (41%)) Confirm Administered Dose 20 ml .ROUTE .STK-MED ONE Stop: 04/05/20 11:51 Ketorolac Tromethamine (Toradol) 15 mg IVPUSH ONETIME STA Stop: 04/04/20 22:32 Last Admin: 04/04/20 22:42 Dose: 15 mg Documented by: Ketorolac Tromethamine (Toradol) Confirm Administered Dose 30 mg .ROUTE .STK-MED ONE Stop: 04/05/20 17:26 Lidocaine (Xylocaine-Mpf 2%) Confirm Administered Dose 5 ml .ROUTE .STK-MED ONE Stop: 04/05/20 11:05 Midazolam HCl (Versed 1 Mg/Ml) Confirm Administered Dose 2 mg .ROUTE .STK-MED ONE Stop: 04/05/20 11:05 Morphine Sulfate (Morphine) 2 mg IVPUSH Q4H PRN PRN Reason: Pain Ondansetron HCl (Zofran) 4 mg IVPUSH Q4H PRN PRN Reason: Nausea/Vomiting Ondansetron HCl (Zofran) Confirm Administered Dose 4 mg .ROUTE .STK-MED ONE Stop: 04/05/20 11:05 Propofol (Diprivan 20 Ml) Confirm Administered Dose 200 mg .ROUTE .STK-MED ONE Stop: 04/05/20 11:05 Tamsulosin HCl (Flomax) 0.4 mg PO ONETIME ONE Stop: 04/05/20 00:06 Last Admin: 04/05/20 00:32 Dose: 0.4 mg Documented by:
== END 2020-04-05 23:30 | disposition home or self-care (01) | DRG 661 ==
LOC: MW.ED 22:02 → MW.MS 04-05 00:21
PROVIDERS: ADMIT Student in an Organized Health Care Education/Training Program; ATTEND Student in an Organized Health Care Education/Training Program
PROC: 0TC78ZZ Extirpation of Matter from Left Ureter, Via Natural or Artificial Opening Endoscopic (ICD-10-PCS; principal; 2020-04-05)
PROC: 0T778DZ Dilation of Left Ureter with Intraluminal Device, Via Natural or Artificial Opening Endoscopic (ICD-10-PCS; 2020-04-05)
DX: N13.2 Hydronephrosis with renal and ureteral calculous obstruction (principal); N17.9 Acute kidney failure, unspecified; K80.20 Calculus of gallbladder without cholecystitis without obstruction; R31.9 Hematuria, unspecified; Z98.890 Other specified postprocedural states; Z20.828 Contact with and (suspected) exposure to other viral communicable diseases; Z88.8 Allergy status to other drugs, medicaments and biological substances; Z88.6 Allergy status to analgesic agent; Z79.899 Other long term (current) drug therapy
CPT/HCPCS: 36415; 74176; 80048; 85025; J1885; J7030; 00918; 76000; 76000-26; 81001; 83735; 84100; 88300; 96361; 96374; 99234; 99283; 99285-25; A9270-GY; C2617; C9113; J0330; J0690; J2001; J2250; J2405; J2704; J3010; J7050; J7120; Q9966; U0002

== ENCOUNTER 2020-06-18 07:17 | Day surgery (SDC) | payer MEDICAID ==
[~2020-06-18 07:17] MED LIST: Glycopyrrolate 0.2 MG/ML SDV ONE; Indocyanine Green 25 MG SDV SCH; Lactated Ringers 1,000 ML IV SCH; Lidocaine 2% 5 ML SDV ONE; Midazolam 1 MG/ML 2 ML SDV ONE; Ondansetron 4 MG/2 ML SDV ONE; Propofol 200 MG/20 ML SDV ONE; Rocuronium Bromide 50 MG/5 ML Syringe ONE; cefOXitin 2 GM in Premix Bag 1 BAG IV ONE; fentaNYL 250 MCG/5 ML SDV ONE
[2020-06-18] MEDS ORDERED: Acetaminophen 1,000 MG in Premix Bag 1 BAG IV ONE (07:30)
[2020-06-18] MEDS ORDERED: Pregabalin 75 MG Cap PO ONE ×3 (07:30→08:15)
[2020-06-18] MEDS ORDERED: Octyl 2-Cyanoacrylate 1 Tube ONE (07:31)
[2020-06-18] MEDS ORDERED: Bupivacaine 25%/EPINEPHrine/PF 30 ML ONE (07:31)
[2020-06-18] MEDS ORDERED: Scopolamine 1.5 MG Transdermal Patch TRDERM PRN (07:44)
--- NOTE | 2020-06-18 07:44 | PCM.PREANE ---
Preanesthetic Assessment - Anesthesia/Transfusion/Family Hx Anesthesia History: Prior Anesthesia Without Reaction Family History of Anesthesia Reaction: No Transfusion History: No Prior Transfusion(s) Intubation History: Unknown - Review of Systems General: No Symptoms Pulmonary: No Symptoms Cardiovascular: No Symptoms Gastrointestinal: Abdominal Pain Neurological: No Symptoms Other: Reports: None - Physical Assessment Height: 5 ft 3 in Weight: 77.111 kg ASA Class: 2 Mental Status: Alert & Oriented x3 Airway Class: Mallampati = 2 Dentition: Reports: Normal Dentition Thyro-Mental Finger Breadths: 3 Mouth Opening Finger Breadths: 2 (small mouth) ROM/Head Extension: Full Lungs: Clear to Auscultation, Normal Respiratory Effort Cardiovascular: Regular Rate, Regular Rhythm - Lab Values: Laboratory Last Values Urine HCG, Qual NEGATIVE (NEGATIVE) 06/18/20 06:49 SARS-CoV-2 RNA (BACILIO) NEGATIVE (NEGATIVE) 06/18/20 06:08 - Allergies Allergies/Adverse Reactions: Allergies Allergy/AdvReac Type Severity Reaction Status Date / Time diphenhydramine Allergy Hives Verified 06/06/20 10:04 [From Benadryl] - Blood Blood Available: No - Anesthesia Plan Pre-Op Medication Ordered: None - Acknowledgements Anesthesia Type Planned: General Anesthesia Pt an Appropriate Candidate for the Planned Anesthesia: Yes Alternatives and Risks of Anesthesia Discussed w Pt/Guardian: Yes Pt/Guardian Understands and Agrees with Anesthesia Plan: Yes PreAnesthesia Questionnaire - Past Health History Medical/Surgical History: Denies Medical/Surgical History HEENT History: Reports: None Cardiovascular History: Reports: None Respiratory History: Reports: None Gastrointestinal History: Reports: Cholelithiasis Genitourinary History: Reports: Renal Calculus (multiple) Musculoskeletal History: Reports: Other (See Below) Other Musculoskeletal History: states has dystonia and her joints lock up Neurological History: Reports: Migraines, Other (See Below) Other Neuro History: Dystonia Psychiatric History: Reports: None Endocrine/Metabolic History: Reports: Obesity/BMI 30+ (BMI 30.1) Hematologic History: Reports: None Immunologic History: Reports: None Oncologic (Cancer) History: Reports: None Dermatologic History: Reports: None - Infectious Disease History Infectious Disease History: Reports: None Other Infectious Disease History: when a child - Past Surgical History Head Surgeries/Procedures: Reports: None HEENT Surgical History: Reports: None GI Surgical History: Reports: None Female Surgical History: Reports: Section, Tubal Ligation Other Female Surgeries/Procedures: states had lithotripsy with stone removal right Musculoskeletal Surgical History: Reports: None - SUBSTANCE USE Tobacco Use Status *Q: Never Tobacco User - HOME MEDS Home Medications: Home Meds Carbidopa/Levodopa [Carbidopa-Levo 25-100 MG ODT] 1 tab PO DAILY 05/20/19 [History] Topiramate [Topiramate ER] 1 tab PO DAILY 06/06/20 [History] - CURRENT (IN HOUSE) MEDS Current Meds: Current Medications Lactated Ringer's (Ringers, Lactated) 1,000 mls @ 125 mls/hr IV ASDIRECTED [facility] Acetaminophen 1,000 mg/ Premix 100 mls @ 400 mls/hr IV NOW ONE Stop: 06/18/20 07:44 Indocyanine Green (Indocyanine Green) 5 mg .XX ONCALL [facility] Discontinued Medications Fentanyl (Sublimaze) Confirm Administered Dose 250 mcg .ROUTE .STK-MED ONE Stop: 06/18/20 07:15 Glycopyrrolate (Robinul) Confirm Administered Dose 0.4 mg .ROUTE .STK-MED ONE Stop: 06/18/20 07:14 Cefoxitin Sodium 2 gm/ Premix 50 mls @ 100 mls/hr IV ONETIME ONE Stop: 06/17/20 11:32 Bupivacaine HCl/Epinephrine Bitart (Sensorc Mpf 0.25%-Epi [id number]) Confirm Administered Dose 30 mls @ as directed .ROUTE .STK-MED ONE Stop: 06/18/20 07:32 Lidocaine (Xylocaine-Mpf 2%) Confirm Administered Dose 5 ml .ROUTE .STK-MED ONE Stop: 06/18/20 07:14 Midazolam HCl (Versed 1 Mg/Ml) Confirm Administered Dose 2 mg .ROUTE .STK-MED ONE Stop: 06/18/20 07:15 Octyl Cyanoacrylate (Dermabond Advance) Confirm Administered Dose 1 applic .ROUTE .STK-MED ONE Stop: 06/18/20 07:32 Ondansetron HCl (Zofran) Confirm Administered Dose 4 mg .ROUTE .STK-MED ONE Stop: 06/18/20 07:14 Pregabalin (Lyrica) 150 mg PO ONETIME ONE Stop: 06/18/20 07:31 Propofol (Diprivan 20 Ml) Confirm Administered Dose 200 mg .ROUTE .STK-MED ONE Stop: 06/18/20 07:15 Rocuronium [place] (Rocuronium [place]) Confirm Administered Dose 50 mg .ROUTE .STK-MED ONE Stop: 06/18/20 07:14
[2020-06-18] MEDS ORDERED: Sodium Chloride 0.9% 0 ML ONE (08:12)
[2020-06-18] MEDS ORDERED: cefOXitin 1 GM Vial ONE ×3 (08:12→10:09)
[2020-06-18] MEDS ORDERED: ePHEDrine 50 MG/ML SDV ONE (08:22)
[2020-06-18] MEDS ORDERED: Ketorolac 30 MG/ML SDV ONE (09:17)
--- NOTE | 2020-06-18 09:34 | PCM.OPNOTE ---
- General Post-Op/Procedure Note Date of Surgery/Procedure: 06/18/20 Operative Procedure(s): cholelithiasis Findings: cholelithiasis dictation number [id number] Pre Op Diagnosis: symptomatic cholelithiasis Post-Op Diagnosis: symptomatic cholelithiasis Anesthesia Technique: General ET Tube Primary Surgeon: Ramsey Dia Pathology: gallbladder Complications: None Condition: Good
[2020-06-18] MEDS ORDERED: fentaNYL 100 MCG/2 ML SDV IVPUSH PRN (09:39)
[2020-06-18] MEDS ORDERED: HYDROmorphone 2 MG/ML Syringe IVPUSH PRN (09:39)
[2020-06-18] MEDS ORDERED: Sodium Chloride 0.9% 20 ML ONE (10:09)
--- NOTE | 2020-06-18 10:18 | PCM.POSTAN ---
POST ANESTHESIA ASSESSMENT - MENTAL STATUS Mental Status: Alert, Oriented - VITAL SIGNS Vital Signs: Last Vital Signs Temp 36.8 C 06/18/20 09:21 Pulse 112 H 06/18/20 10:12 Resp 18 06/18/20 10:12 BP 121/70 06/18/20 10:12 Pulse Ox 93 L 06/18/20 10:12 - RESPIRATORY Respiratory Status: Respiratory Rate WNL, Airway Patent, O2 Saturation Stable - CARDIOVASCULAR CV Status: Pulse Rate WNL, Blood Pressure Stable - GASTROINTESTINAL GI Status: No Symptoms - PAIN Pain Score: 4 - POST OP HYDRATION Hydration Status: Adequate & Stable - OBSERVATIONS Free Text/Narrative:: No anesthesia problems
--- NOTE | 2020-06-18 11:55 | OR ---
SURGEON: JAKE WALKER MD DATE OF PROCEDURE: 06/18/2020 PREOPERATIVE DIAGNOSIS: Symptomatic cholelithiasis. POSTOPERATIVE DIAGNOSIS: Symptomatic cholelithiasis. PROCEDURE PERFORMED: Laparoscopic cholecystectomy. PRIMARY SURGEON: Jake Walker MD. ANESTHESIA: General. ESTIMATED BLOOD LOSS: 5 mL. SPECIMEN: Gallbladder. COMPLICATIONS: None. REASON FOR PROCEDURE: The patient is a pleasant 34-year-old female. For the past 3 to 4 years, she is getting epigastric pain especially after greasy foods. She did have an ultrasound which showed gallstones. Given all risks, goals, alternatives of the procedure, the patient wishes to proceed. OPERATIVE NARRATIVE: The patient was brought back to the OR. Preoperative antibiotics were given. SCDs placed and anesthesia provided by Anesthesia team. After time-out was performed, an infraumbilical incision was made. It was carried down to the fascia. The fascia was then entered with the open Gagan technique and insufflation was begun. Now, pneumoperitoneum was established. Abdomen was inspected. No entry injury was seen. Now, 3 more 5 mm trocars were placed in the usual fashion under direct visualization, one in the midepigastric, one in the right upper quadrant, and one on the right lower quadrant. The patient was put in a head up position and airplaned towards myself. Critical view was gently dissected out mainly with blunt dissection. This area was slightly edematous. I did get a good critical view with the cystic duct and the cystic artery. This was again confirmed using indocyanine green. This did show one clear cystic duct going up into the gallbladder. We did do a flush, which showed the cystic artery. Now, the cystic duct and cystic artery were cleared just a little bit more. Now, both cystic duct and cystic artery were clipped and transected. The gallbladder was then taken off with the Harmonic scalpel. No other tubular structures were countered. The fossa was inspected. There was good hemostasis. The clips remained in good position. Now, the gallbladder was placed in EndoCatch bag and 5 mm trocars were removed under direct visualization. There was good hemostasis. Now, the pneumoperitoneum was released and the gallbladder was removed. The infraumbilical fascia was closed with [id number] 0 Vicryl stitch. All the trocar sites were again injected with local and closed with 4-0 Monocryl and Dermabond. At the end of the case, sponge and needle counts were correct and the patient was transferred to the recovery room in stable condition. VERÓNICA WALL /[id number]
[2020-06-18] MEDS ORDERED: Haloperidol Lactate 5 MG/ML SDV IM ONE (13:07)
--- NOTE | 2020-06-18 16:17 | PCM48HPAN ---
Post Anesthesia Note - EVALUATION WITHIN 48HRS OF ANESTHETIC Vital Signs in Normal Range: Yes Patient Participated in Evaluation: Yes Respiratory Function Stable: Yes Airway Patent: Yes Cardiovascular Function Stable: Yes Hydration Status Stable: Yes Pain Control Satisfactory: Yes Nausea and Vomiting Control Satisfactory: Yes Mental Status Recovered: Yes Vital Signs: Last Vital Signs Temp 36.2 C 06/18/20 10:20 Pulse 113 H 06/18/20 12:00 Resp 15 06/18/20 12:00 BP 134/71 06/18/20 12:00 Pulse Ox 99 06/18/20 12:00 - COMMENTS/OBSERVATIONS Free Text/Narrative:: No anesthesia problems
== END 2020-06-18 16:27 | disposition home or self-care (01) ==
LOC: MW.SDS 07:17
PROVIDERS: ATTEND Surgery
DX: K80.10 Calculus of gallbladder with chronic cholecystitis without obstruction (principal); G43.909 Migraine, unspecified, not intractable, without status migrainosus; E66.9 Obesity, unspecified; Z88.8 Allergy status to other drugs, medicaments and biological substances; Z79.899 Other long term (current) drug therapy; Z98.890 Other specified postprocedural states; Z68.30 Body mass index [BMI] 30.0-30.9, adult; Z01.812 Encounter for preprocedural laboratory examination; Z20.828 Contact with and (suspected) exposure to other viral communicable diseases
CPT/HCPCS: 47562; 81025; 87635; 93005; A9270; J0131; J0694; J1170; J1630; J1885; J2001; J2250; J2405; J2704; J3010; J3490; J7120; 00790; U0002